=== PATIENT | male | born 1930 | race Caucasian/White ===

== ENCOUNTER 2019-12-03 16:58 | Emergency (ER) | payer OTHER ==
[2019-12-03 17:25] VITALS: BMI 22.9
--- NOTE | 2019-12-03 18:04 | PDOC ---
History of Present Illness - General Chief Complaint: Nasal Bleeding Stated Complaint: Nasal Bleeding Time Seen by Provider: 12/03/19 17:38 - History of Present Illness Initial Comments: The pt is a 89M w/ history of a-fib (eliquis), HTN, HLD, colon cancer, anemia who presents from [facility] for evaluation of epistaxis. He reports getting up from bed to go to dinner and hit his head on his walker handle and has subsequent epistaxis for 20-30 minutes. He denies falling to the floor, lightheadedness, chest pain, trouble breathing, fevers, recent illness. Denies current bleeding. Denies any other complaints. 12/03/19 17:58 Past History - Medical History Allergies/Adverse Reactions: Allergies Allergy/AdvReac Type Severity Reaction Status Date / Time naproxen [From Naprosyn] Allergy Verified 12/03/19 18:46 tamsulosin Allergy Verified 12/03/19 18:46 terazosin Allergy Verified 12/03/19 18:46 Anemia: Yes (iron) Cancer: Yes (colon) Cardiac Disorders: Yes (CHF afib) COPD: No HTN: Yes - Psycho-Social/Smoking History Smoking History: Former smoker Have you smoked in the past 12 months: No Information on smoking cessation initiated: No - Substance Abuse Hx (Audit-C & DAST Scrn) How often the patient has a drink containing alcohol: Never Score: In Men: 4 or > Positive; In Women: 3 or > Positive: 0 Screen Result (Pos requires Nsg. Audit-10AR): Negative In the last yr the pt used illegal drug/Rx for NonMed reason: No Score: Yes response is considered Positive: 0 Screen Result (Positive result requires Nsg. DAST-10): Negative Review of Systems - Review of Systems Able to Perform ROS?: Yes Comments:: GENERAL/CONSTITUTIONAL: No fever or chills HEAD, EYES, EARS, NOSE AND THROAT: No change in vision. No change in hearing. No sore throat CARDIOVASCULAR: No chest pain or shortness of breath RESPIRATORY: Denies cough GASTROINTESTINAL: No nausea, vomiting, diarrhea or constipation GENITOURINARY: No dysuria, frequency, or change in urination MUSCULOSKELETAL: No neck or back pain SKIN: No rash NEUROLOGIC: No headache, vertigo, loss of consciousness, or change in strength/sensation ENDOCRINE: No increased thirst. No abnormal weight change HEMATOLOGIC/LYMPHATIC: +anemia ALLERGIC/IMMUNOLOGIC: No hives or skin allergy 12/03/19 18:07 Is the patient limited [place] proficient: No *Physical Exam - Vital Signs Last Vital Signs Temp Pulse Resp BP Pulse Ox 97.4 F L 75 18 86/58 L 97 12/03/19 17:12 12/03/19 17:12 12/03/19 17:12 12/03/19 17:12 12/03/19 17:12 - Physical Exam GENERAL: Awake, alert, and oriented to person/place/time, in no acute distress HEAD: No signs of trauma, normocephalic, atraumatic EYES: PERRLA, EOMI, sclera anicteric, conjunctiva clear ENT: Hearing grossly normal, nares w/ clotted blood w/o septal hematoma; no active bleed; oropharynx clear without exudates. Moist mucosa LUNGS: No distress, speaks in full sentences, clear to auscultation bilaterally HEART: Irregularly irregular rhythm, regular rate, no murmurs appreciated, peripheral pulses normal and equal bilaterally ABDOMEN: Soft, nontender, normoactive bowel sounds. No guarding, no rebound EXTREMITIES: Normal inspection, Normal range of motion NEUROLOGICAL: Cranial nerves II through XII grossly intact. Normal speech, no focal sensorimotor deficits SKIN: Warm, Dry 12/03/19 18:07 ED Treatment Course - LABORATORY CBC & Chemistry Diagram: 12/03/19 17:55 12/03/19 19:00 Medical Decision Making - Medical Decision Making The pt is a 89M w/ history of a-fib (eliquis), HTN, HLD, colon cancer, anemia wh o presents from [facility] for evaluation of epistaxis. ED Course CMP, CBC, T/s, coags IV placed No active bleed at this time Pt repeat BP 90s/60s, MAP in the 80s Pt mentating well and w/o symptoms at this time Will reassess 12/03/19 18:[address] 1.7, Cr here 2.1 No leukocytosis No anemia K noted to be elevated but hemolyzed, will repeat BNP LFTs overall unremarkable LR 500cc once given Pt pending IVF and re-eval Pt signed out to Dr. Reynolds Discharge - Discharge Information Problems reviewed: Yes Clinical Impression/Diagnosis: Epistaxis Condition: Stable Disposition: HOME - Admission No - Follow up/Referral Referrals: Tang Cortez MD [Primary Care Provider] - - Patient Discharge Instructions Patient Printed Discharge Instructions: DI for Nosebleed Additional Instructions: You were seen in the Emergency Department for evaluation of nosebleed. Some lab values that are a measure of kidney function were abnormal (BUN and Cr). A copy of your labs were given to you. Hydrate with water while at home. Get these values (BUN and Creatinine) checked again in two days. Your hemoglobin was stable. The remainder of your labs were unremarkable. Review the handout provided at discharge. Avoid rubbing your nose or washing it vigorously. Follow up with your primary care provider within 72 hours to discuss this visit and to further evaluate your symptoms. Call and make an appointment. Your care is not complete until you do so. Return to the Emergency Department if you develop fevers/chills, repeat/persistent nosebleed, lightheadedness, chest pain, changes in strength/sensation, worsening symptoms, or any new/concerning symptoms. - Post Discharge Activity
[2019-12-03 18:17] LABS: BASO % 1.4 % (0-2.0); EOS % 3.2 % (0-4.5); HEMOGLOBIN 11.8 GM/dL (11.7-16.9); LYMPH % 9.9 % (8-40); MCH 32.5 pg (25.7-33.7); MCHC 33.7 g/dl (32.0-35.9); MEAN CELL VOLUME 96.3 fl (80-96); MEAN PLT VOLUME 7.8 fl (7.5-11.1); MONO % 8.7 % (3.8-10.2); NEUT % 76.8 % (42.8-82.8); PLATELET COUNT 181 K/MM3 (134-434); RBC 3.63 M/mm3 (4.00-5.60); RDW 14.2 % (11.9-15.9); WHITE BLOOD COUNT 5.6 K/mm3 (4.0-10.0)
[2019-12-03 18:29] LABS: INR 1.04 (0.83-1.09); PROTHROMBIN TIME (PATIENT) 12.3 SEC (9.7-13.0)
[2019-12-03] MEDS ORDERED: LACTATED RINGERS SOLUTION 1000 ML INFUS.BAG IV ONE (18:30)
[2019-12-03 18:32] LABS: ACTIVATED PTT 25.5 SECONDS (25.2-36.5)
[2019-12-03 18:51] LABS: BILIRUBIN,TOTAL 0.7 mg/dL (0.2-1); BLOOD UREA NITROGEN 65.2 mg/dL (7-18); CALCIUM 8.4 mg/dL (8.5-10.1); CREATININE 2.3 mg/dL (0.55-1.3); POTASSIUM 5.2 mmol/L (3.5-5.1); TOT PROT 7.8 g/dl (6.4-8.2)
--- NOTE | 2019-12-03 19:04 | PDOC ---
Attending Attestation - Resident Resident Name: Norm Saxena - ED Attending Attestation I have performed the following: I have examined & evaluated the patient, The case was reviewed & discussed with the resident, I agree w/resident's findings & plan, Exceptions are as noted - HPI HPI: 12/03/19 19:15 89 years old A. fib on Eliquis hypertension hyperlipidemia colon cancer anemia presents to the ED with mild trauma to nose epistaxis left nostril now resolved. Patient feels better no complaints at this time - Physicial Exam PE: 12/03/19 19:15 Vitals: Triage Vital signs reviewed General Appearance: No acute distress, well nourished well developed, Head: Atraumatic, Eyes: Pupils equal reactive round, extraocular movement intact Chest Wall: Nontender Cardiac: Regular rate and rhythym, no murmurs, no rubs, no gallops, Lungs: Clear to auscultation bilateral, good air movement bilaterally, Abdomen: Soft, non distended, normal bowel sounds, non tender to palpation Extremities: Full range of motion to all extremities, no cyanosis, clubbing, or edema Skin: Warm and dry, no rashes or lesions, no rash, no petechiae Neuro: AOX3; cranial Nerves 2-12 grossly intact, strength intact to all ex tremities, sensation intact to all extremities, gait normal Psych: Normal mood, normal affect - Medical Decision Making 12/03/19 19:16 89 years old with epistaxis resolved We will hydrate check labs observe and reassess Dr. Steinberg to follow up labs and reasses Discharge - Discharge Information Problems reviewed: Yes Clinical Impression/Diagnosis: Epistaxis Condition: Stable Disposition: HOME - Follow up/Referral Referrals: Tang Cortez MD [Primary Care Provider] - - Patient Discharge Instructions Patient Printed Discharge Instructions: DI for Nosebleed Additional Instructions: You were seen in the Emergency Department for evaluation of nosebleed. Some lab values that are a measure of kidney function were abnormal (BUN and Cr). A copy of your labs were given to you. Hydrate with water while at home. Get these values (BUN and Creatinine) checked again in two days. Your hemoglobin was stable. The remainder of your labs were unremarkable. Review the handout provided at discharge. Avoid rubbing your nose or washing it vigorously. Follow up with your primary care provider within 72 hours to discuss this visit and to further evaluate your symptoms. Call and make an appointment. Your care is not complete until you do so. Return to the Emergency Department if you develop fevers/chills, repeat/persistent nosebleed, lightheadedness, chest pain, changes in strength/sensation, worsening symptoms, or any new/concerning symptoms. - Post Discharge Activity
[2019-12-03 19:47] LABS: BLOOD UREA NITROGEN 66.1 mg/dL (7-18); CALCIUM 8.4 mg/dL (8.5-10.1); CREATININE 2.2 mg/dL (0.55-1.3); POTASSIUM 5.1 mmol/L (3.5-5.1)
--- NOTE | 2019-12-03 21:41 | PDOC ---
*Physical Exam - Vital Signs Last Vital Signs Temp Pulse Resp BP Pulse Ox 97.4 F L 85 18 95/64 99 12/03/19 17:12 12/03/19 18:14 12/03/19 18:14 12/03/19 18:14 12/03/19 18:35 ED Treatment Course - LABORATORY CBC & Chemistry Diagram: 12/03/19 17:55 12/03/19 19:00 - ADDITIONAL ORDERS Additional order review: Laboratory Results 12/03/19 12/03/19 12/03/19 19:00 17:55 17:55 PT with INR INR PTT (Actin FS) Sodium 140 Potassium 5.1 Chloride 107 Carbon Dioxide 25 Anion Gap 8 BUN 66.1 H Creatinine 2.2 H Est GFR (CKD-EPI)AfAm 30.10 Est GFR (CKD-EPI)NonAf 25.97 Random Glucose 105 Calcium 8.4 L Total Bilirubin AST ALT Alkaline Phosphatase Total Protein Albumin Blood Type B POSITIVE Cancelled Antibody Screen Cancelled 12/03/19 12/03/19 12/03/19 17:55 17:55 17:55 PT with INR 12.30 INR 1.04 PTT (Actin FS) 25.5 Sodium 139 Potassium 5.2 H Chloride 106 Carbon Dioxide 26 Anion Gap 8 BUN 65.2 H Creatinine 2.3 H Est GFR (CKD-EPI)AfAm 28.53 Est GFR (CKD-EPI)NonAf 24.61 Random Glucose 114 H Calcium 8.4 L Total Bilirubin 0.7 AST 38 H ALT 23 Alkaline Phosphatase 118 H Total Protein 7.8 Albumin 3.0 L Blood Type B POSITIVE Antibody Screen Negative 12/03/19 17:55 RBC 3.63 L MCV 96.3 H MCHC 33.7 RDW 14.2 MPV 7.8 Neutrophils % 76.8 Lymphocytes % 9.9 Monocytes % 8.7 Eosinophils % 3.2 Basophils % 1.4 - RADIOLOGY Radiology Studies Ordered: Category Date Time Status CERVICAL SPINE CT W/O CONTR [CT] Stat CT Scan 12/03/19 19:53 Completed - Medications Given in the ED: ED Medications Discontinued Medications Generic Name Dose Route Start Last Admin Trade Name Freq PRN Reason Stop Dose Admin Lactated Ringer's 500 ml 12/03/19 18:30 12/03/19 18:38 Lactated Ringers Solution IV 12/03/19 18:31 500 ml ONCE ONE Administration Medical Decision Making - Medical Decision Making Patient signed out by Dr. Saxena [id number] EXAM#: TYPE/EXAM: RESULT: CT/HEAD CT WITHOUT CONTRAST CT/CERVICAL SPINE CT W/O CONTR Rule out bleed CT scan of the brain. A noncontrast CT scan of the brain was performed. No prior is available for comparison. There is moderate volume loss and ventricular dilatation. Moderate chronic microvascular ischemic changes are present No mass lesion, gross acute infarct or intracranial hemorrhage are identified. Visualized paranasal sinuses and mastoid air cells are well aerated. There is mucosal hypertrophy in the left nasal cavity mainly involving the inferior nasal turbinates with secretions/debris is layering in left side of the nasopharynx. Calcification of the cavernous carotid arteries are noted. The calvarium is intact . Impression: Moderate atrophy. No gross evidence of a focal intracranial lesion or hemorrhage is seen. Correlate clinically to determine further evaluation and follow-up CT scan of the cervical spine without intravenous contrast Coronal and sagittal reconstruction images were obtained. There is grade 1 anterolisthesis of C7 over T1, likely degenerative. Otherwise, no gross fracture, subluxation or prevertebral soft tissue swelling is seen. No jumped facets are identified. Marked degenerative narrowing of C4-C5 intervertebral disc space with suggestion of fusion. There is also marked degenerative disc disease at C2-C3, C3-C4, C5-C6 level. Moderate degenerative disc disease with likely fusion at C6-C7 level. Marked degenerative disc disease at C7-T1 level. Visualized portion of the airway appears unremarkable. No gross enlarged lymph nodes are identified. Lung windows at the thoracic inlet appear unremarkable. Small calcified plaques at the common carotid bifurcation, bilaterally. IMPRESSION: Grade 1 anterolisthesis of C7 over T1, likely degenerative. Otherwise, the alignment is satisfactory without gross evidence of a fracture or dislocation. Marked degenerative disease from C2 down to T1 level with suggestion of fusion of C4 and C5 as well as C5 and C6 vertebral bodies. 12/03/19 21:39 CMP Sodium 140 mmol/L (136-145) 12/03/19 19:00 Potassium 5.1 mmol/L (3.5-5.1) 12/03/19 19:00 Chloride 107 mmol/L (98-107) 12/03/19 19:00 Carbon Dioxide 25 mmol/L (21-32) 12/03/19 19:00 Anion Gap 8 MMOL/L (8-16) 12/03/19 19:00 BUN 66.1 mg/dL (7-18) H 12/03/19 19:00 Creatinine 2.2 mg/dL (0.55-1.3) H 12/03/19 19:00 Est GFR (CKD-EPI)AfAm 30.10 12/03/19 19:00 Est GFR (CKD-EPI)NonAf 25.97 12/03/19 19:00 Random Glucose 105 mg/dL (74-106) 12/03/19 19:00 Calcium 8.4 mg/dL (8.5-10.1) L 12/03/19 19:00 Total Bilirubin 0.7 mg/dL (0.2-1) 12/03/19 17:55 AST 38 U/L (15-37) H 12/03/19 17:55 ALT 23 U/L (13-61) 12/03/19 17:55 Alkaline Phosphatase 118 U/L (45-117) H 12/03/19 17:55 Total Protein 7.8 g/dl (6.4-8.2) 12/03/19 17:55 Albumin 3.0 g/dl (3.4-5.0) L 12/03/19 17:55 Electrolytes unremarkable Cr 2.2, unknown baseline (Cr=1.7 per prior labs performed at outside facility, however this does not necessarily correspond with the value ranges at our lab) Patient instructed to obtain follow-up BUN and Cr labs in two days Epistaxis resolved Return precautions Stable for discharge Discharge - Discharge Information Problems reviewed: Yes Clinical Impression/Diagnosis: Epistaxis Condition: Stable Disposition: HOME - Follow up/Referral Referrals: Tang Cortez MD [Primary Care Provider] - - Patient Discharge Instructions Patient Printed Discharge Instructions: DI for Nosebleed Additional Instructions: You were seen in the Emergency Department for evaluation of nosebleed. Some lab values that are a measure of kidney function were abnormal (BUN and Cr). A copy of your labs were given to you. Hydrate with water while at home. Get these values (BUN and Creatinine) checked again in two days. Your hemoglobin was stable. The remainder of your labs were unremarkable. Review the handout provided at discharge. Avoid rubbing your nose or washing it vigorously. Follow up with your primary care provider within 72 hours to discuss this visit and to further evaluate your symptoms. Call and make an appointment. Your care is not complete until you do so. Return to the Emergency Department if you develop fevers/chills, repeat/persistent nosebleed, lightheadedness, chest pain, changes in strength/sensation, worsening symptoms, or any new/concerning symptoms. - Post Discharge Activity
[2019-12-04 00:22] VITALS: BP 118/79; PULSE 70; TEMP 98.6
--- NOTE | 2019-12-04 09:05 | EKG ---
Test Reason : Blood Pressure : / mmHG Vent. Rate : 083 BPM Atrial Rate : 100 BPM P-R Int : 000 ms QRS Dur : 086 ms QT Int : 406 ms P-R-T Axes : 000 011 014 degrees QTc Int : 477 ms ATRIAL FIBRILLATION ABNORMAL ECG NO PREVIOUS ECGS AVAILABLE Confirmed by MD GURU, DHAVAL ([id number]) on 12/04/2019 9:05:05 AM Referred By: Confirmed By:DHAVAL GARVEY MD
== END 2019-12-04 00:22 | disposition home or self-care (01) ==
LOC: JER 16:58
DX: R04.0 Epistaxis (principal)
CPT/HCPCS: 36415; 70450-TC; 72125-TC; 80048; 80053; 85025; 85610; 85730; 86850; 86900; 86901; 93005; 93010; 99285-25

== ENCOUNTER 2019-12-10 17:36 | Inpatient (IN) | payer OTHER ==
[2019-12-10 17:56] VITALS: BMI 23.5
--- OUTSIDE RECORDS SUMMARY | 2019-12-10 18:47 | XMS ---
:1930 [facility] Name Relationship Address Phone RE Unavailable Unavailable Unavailable ZENY HOBBS SON [address] [place] [address] ZENY HOBBS Child [address] [place] [address] Re-disclosure Warning The records that you are about to access may contain information from federally- assisted alcohol or drug abuse programs. If such information is present, then the following federally mandated warning applies: This information has been disclosed to you from records protected by federal confidentiality rules (42 CFR part 2). The federal rules prohibit you from making any further disclosure of this information unless further disclosure is expressly permitted by the written consent of the person to whom it pertains or as otherwise permitted by 42 CFR part 2. A general authorization for the release of medical or other information is NOT sufficient for this purpose. The Federal rules restrict any use of the information to criminally investigate or prosecute any alcohol or drug abuse patient.The records that you are about to access may contain highly sensitive health information, the redisclosure of which is protected by Article 27-F of the [facility] Public Health law. If you continue you may haveaccess to information: Regarding HIV / AIDS; Provided by facilities licensed or operated by the [facility] Office of Mental Health; or Provided by the [facility] Office for People With Developmental Disabilities. If such information is present, then the following [facility] mandated warning applies: This information has been disclosed to you from confidential records which are protected by state law. State law prohibits you from making any further disclosure of this information without the specific written consent of the person to whom it pertains, or as otherwise permitted by law. Any unauthorized further disclosure in violation of state law may result in a fine or detention sentence or both. A general authorization for the release of medical or other information is NOT sufficient authorization for further disclosure. Insurance Providers Payer name Policy type Policy ID Covered Covered democrat's Policy P kamar / Coverage democrat ID relationship to [employer] [employer] ormation type [place] MEDICAID [id number] SP [id number] Results ID Date Data Source [id number] 07/29/2019 12:00:00 PM EDT [place] Name Value Range Interpretation Description Data Sup porting Code Source(s) Document(s ) SARS CoV-2 [place] Interpretation This lab was ordered by [facility] and reported by [facility] [employer]. Procedure
--- NOTE | 2019-12-10 19:44 | PDOC ---
Attending Attestation - Resident Resident Name: Roseanna Baez - ED Attending Attestation I have performed the following: I have examined & evaluated the patient, The case was reviewed & discussed with the resident, I agree w/resident's findings & plan - HPI HPI: 12/10/19 20:26 see resident hpi - Physicial Exam PE: 12/10/19 20:27 see resident exam - Medical Decision Making 12/10/19 20:27 89-year-old male status post unwitnessed fall, here for similar event several days ago with baseline confusion Plan for CT scan of the head and cervical spine as well as possible syncope evaluation Will plan for telemetry observation pending results Discharge - Discharge Information Problems reviewed: Yes Clinical Impression/Diagnosis: Multiple falls - Follow up/Referral Referrals: Tang Cortez MD [Primary Care Provider] - - Patient Discharge Instructions - Post Discharge Activity
--- NOTE | 2019-12-10 20:26 | PDOC ---
History of Present Illness - General Chief Complaint: Injury Stated Complaint: Injury Time Seen by Provider: 12/10/19 19:42 History Source: Patient, Detention Records Exam Limitations: Dementia - History of Present Illness Initial Comments: Pt is a 89 yo M, with PMH of Afib (on Eliquis), HTN, HLD, and colon CA, who is presenting via EMS from [facility] for "being found on the ground". Per [place] records, pt was found down on the ground sitting next to his bed. He had hip & pelvis x-rays done with no acute fracture. Pt was at [facility] ER 12/02 for epistaxis. Pt denies recent epistaxis since his last visit and when asked about the dried blood on his nose, he states "maybe I had a little bleeding today and maybe I fell getting out of bed". Pt is a poor historian and tells a variety of stories to explain todays events. PCP: Dr. Cortez ([facility]) Social: Pt denies any cigarette, alcohol, or drug use. Pt denies any recent travel or sick contacts. Family: no relevant history. 12/10/19 20:18 12/10/19 20:26 Past History - Travel History Traveled outside of the country in the last 30 days: No Close contact w/someone who was outside of country & ill: No - Medical History Allergies/Adverse Reactions: Allergies Allergy/AdvReac Type Severity Reaction Status Date / Time naproxen [From Naprosyn] Allergy Verified 12/10/19 17:56 tamsulosin Allergy Verified 12/10/19 17:56 terazosin Allergy Verified 12/10/19 17:56 Anemia: Yes (iron) Cancer: Yes (colon) Cardiac Disorders: Yes (CHF afib) COPD: No HTN: Yes - Psycho-Social/Smoking History Smoking History: Never smoked Have you smoked in the past 12 months: No Information on smoking cessation initiated: No - Substance Abuse Hx (Audit-C & DAST Scrn) In the last yr the pt used illegal drug/Rx for NonMed reason: No Score: Yes response is considered Positive: 0 Screen Result (Positive result requires Nsg. DAST-10): Negative Trauma Specific PMHX - Complaint Specific PMHX Arthritis: Yes (L shoulder) Back Injury: No Neck Injury: No Hx Sacro Iliac Joint Dysfunction: No Review of Systems - Review of Systems Able to Perform ROS?: No (dementia) Is the patient limited [place] proficient: No *Physical Exam - Vital Signs Last Vital Signs Temp Pulse Resp BP Pulse Ox 97.3 F L 94 H 16 120/84 95 12/10/19 17:40 12/10/19 17:40 12/10/19 17:40 12/10/19 17:40 12/10/19 17:40 - Physical Exam Borderline tachycardia, pt afebrile. Pt in NAD, normal body habitus. Pt alert and oriented to person and place. Not oriented to time (baseline) vp strategic planning generally intact, muscular strength and sensation intact. Full range of all 4 extremities, limited in LUE 2/2 to pain (baseline) No midline spinal tenderness, step-offs, or crepitus. Head normocephalic, atraumatic. Eyes PERRLA, EOMI. Oropharynx without erythema or exudates, no LAD b/l. No nasal congestion. Hearing intact. Clear heart sounds, S1/S2, no JVD, b/l pedal edema, or heart murmur. Clear lung sounds, no respiratory distress, wheezes, crackles, or accessory muscle use. No abdominal or CVA tenderness to palpation, no rebound, no guarding. Abdomen soft, non-distended, and with normoactive bowel sounds. Skin without jaundice or rash. 12/10/19 22:42 ED Treatment Course - LABORATORY CBC & Chemistry Diagram: 12/10/19 21:35 12/10/19 21:35 - RADIOLOGY Radiology Studies Ordered: Category Date Time Status CERVICAL SPINE CT W/O CONTR [CT] Stat CT Scan 12/10/19 19:[address] WITHOUT CONTRAST [CT] Stat CT Scan 12/10/19 19:44 Ordered CHEST X-RAY PORTABLE* [RAD] Stat Radiology 12/10/19 20:04 Ordered SHOULDER-LEFT [RAD] Stat Radiology 12/10/19 20:05 Ordered Medical Decision Making - Medical Decision Making Pt was seen at bedside, also will be seen by attending Dr. Steinberg. Pt presenting with recent falls from [place], poor historian. Recent epistaxis, concerning for hypovolemia 2/2 blood loss, syncope, falls on A/C (Eliquis). Pt declined pain control at this time. Will continue to reassess pt and monitor for symptomatic improvement. ECG: Afib with RVR with PVCs. No TWIs or significant ST segment changes. No significant changes from prior ECG. 12/10/19 21:45 Difficult IV access, labs sent. Pt requesting pain relief, borderline tachycardia, has not taken rate control meds. Provided 1 g IV ofirmev, 50 mg ER metoprolol. 12/10/19 21:45 CTH and C-spine with no acute pathology. Dr. Valera called to note mediastinal lymph node enlargement. Pt can f/u results with PCP/inpatient team. 12/10/19 22:47 BUN/Cr within pt baseline H/H dropping, not at level for transfusion K and troponin elevated with no new EKG changes from baseline (Afib RVR with PVCs) Pt admitted to hospitalist team (telemetry) for ACS/syncope work-up. 12/11/19 00:03 Discharge - Discharge Information Problems reviewed: Yes Clinical Impression/Diagnosis: Multiple falls, Elevated troponin I level Condition: Stable - Admission Yes - Follow up/Referral Referrals: Tang Cortez MD [Primary Care Provider] - - Patient Discharge Instructions - Post Discharge Activity
[2019-12-10] MEDS ORDERED: ACETAMINOPHEN 1000 MG/100 ML VIAL (NON FORMULARY) IVPB ONE (21:45)
[2019-12-10] MEDS ORDERED: METOPROLOL TARTRATE 50 MG TABLET (FP) PO ONE (21:45)
[2019-12-10 22:07] LABS: BASO % 0.9 % (0-2.0); EOS % 1.6 % (0-4.5); HEMATOCRIT 28.7 % (35.4-49); HEMOGLOBIN 9.8 GM/dL (11.7-16.9); MCH 32.7 pg (25.7-33.7); MCHC 34.1 g/dl (32.0-35.9); MEAN CELL VOLUME 95.7 fl (80-96); MEAN PLT VOLUME 8.6 fl (7.5-11.1); MONO % 8.1 % (3.8-10.2); NEUT % 79.4 % (42.8-82.8); PLATELET COUNT 192 K/MM3 (134-434); RBC 2.99 M/mm3 (4.00-5.60); WHITE BLOOD COUNT 5.5 K/mm3 (4.0-10.0)
[2019-12-10 22:17] LABS: INR 1.21 (0.83-1.09); PROTHROMBIN TIME (PATIENT) 14.3 SEC (9.7-13.0)
[2019-12-10 22:20] LABS: ACTIVATED PTT 25.6 SECONDS (25.2-36.5)
[2019-12-10 22:45] LABS: ALBUMIN 2.9 g/dl (3.4-5.0); BILIRUBIN,TOTAL 0.4 mg/dL (0.2-1); BLOOD UREA NITROGEN 47.5 mg/dL (7-18); CALCIUM 8.5 mg/dL (8.5-10.1); CREATININE 1.7 mg/dL (0.55-1.3); TOT PROT 6.8 g/dl (6.4-8.2)
[2019-12-10 22:57] LABS: POTASSIUM 6.3 mmol/L (3.5-5.1)
[2019-12-10] MEDS ORDERED: METOPROLOL TARTRATE 50 MG TABLET (FP) ONE (23:57)
[2019-12-10] MEDS ORDERED: ACETAMINOPHEN INJECTION 100 ML IVPB ONE (23:58)
--- OUTSIDE RECORDS SUMMARY | 2019-12-11 00:06 | XMS ---
:1930 [facility] Support Name Relationship Address Phone RE Unavailable Unavailable Unavailable ZENY HOBBS SON [address] [place] [address] ZENY HOBBS Child [address] [place] [place] [address] Re-disclosure Warning The records that you are [...] is protected by Article 27-F of the [facility] Public Health law. If you continue you may haveaccess to information: Regarding HIV / AIDS; Provided by facilities licensed or operated by the [facility] Office of Mental Health; or Provided by the [facility] Office for People With Developmental Disabilities. If such information is present, then the following [facility] mandated warning applies: This information has been [...] law may result in a fine or intermediate sentence or both. A general authorization for the release of medical or other information is NOT sufficient authorization for further disclosure. Insurance Providers Payer name Policy type Policy ID Covered Covered alliance party's Policy P kamar / Coverage alliance party ID relationship to [place] [employer] ormation type [place] MEDICAID [id number] SP [id number] Results ID Date Data Source [id number] 07/29/2019 12:00:00 PM EDT [place] Name Value Range Interpretation Description Data Sup porting Code Source(s) Document(s ) SARS CoV-2 [place] Interpretation This lab was ordered by [facility] and reported by [facility]. Procedure
[2019-12-11 00:49] LABS: BLOOD UREA NITROGEN 48.1 mg/dL (7-18); CALCIUM 8.6 mg/dL (8.5-10.1); CREATININE 1.6 mg/dL (0.55-1.3); POTASSIUM 5.2 mmol/L (3.5-5.1)
--- NOTE | 2019-12-11 01:07 | HP ---
CHIEF COMPLAINT: PCP: HISTORY OF PRESENT ILLNESS: Mr. Fuentes is an 89 year old with PMH of afib on Eliquis, hypertension, hyperlipidemia, colon cancer who presents to the ED after an unwitnessed fall this morning. Currently residing at [facility]. Patient is a poor historian but reports during breakfast he fell, landing on his back. Denied fever, chills, headache, dizziness, vision loss, diaphoresis prior to the episode. He reports new pain in the left shoulder and pain in the left leg, with associated weakness. ER course was notable for: CT head, cervical spine negative for acute pathology; EKG revealed Afib RVR without acute ST wave changes. Acetaminophen and metoprolol administered. Recent Travel: None PAST MEDICAL HISTORY: Hypertension HLD colon cancer anemia PAST SURGICAL HISTORY: Knee replacement surgery ( date unknown) Social History: Smoking: quit smoking in 1954 Alcohol:never Drugs: never Allergies naproxen [From Naprosyn] Allergy (Verified 12/10/19 17:56) tamsulosin Allergy (Verified 12/10/19 17:56) terazosin Allergy (Verified 12/10/19 17:56) Home Med List Aa/Hydrolyzed Collagen, Whey [Lps 15-30 Liquid] 30 ml PO BID 12/11/19 Acetaminophen 325 mg PO Q6H PRN 12/11/19 Allopurinol [Zyloprim -] 100 mg PO BID 12/11/19 Ammonium Lactate Lotion [Lac-Hydrin 12% Lotion -] 1 applic TP DAILY 12/11/19 Amoxicillin - [Amoxicillin 500mg Capsule -] 1,000 mg PO BID 12/11/19 Apixaban [Eliquis] 2.5 mg PO BID 12/11/19 Ascorbate Calcium [Vitamin C] 500 mg PO DAILY 12/11/19 Bacillus Coagulans [Bacid with Lactospore] 250 mg PO TID 12/11/19 Cyanocobalamin (Vitamin B-12) [B-12] 1,000 mcg PO DAILY 12/11/19 Famotidine 20 mg PO DAILY 12/11/19 Ferrous Sulfate [Iron] 325 mg PO DAILY 12/11/19 Finasteride 5 mg PO DAILY 12/11/19 Fluticasone/Vilanterol [Breo Ellipta 100-25 Mcg INH] 1 each IH DAILY 12/11/19 Furosemide 20 mg PO DAILY MDD 60 mg 12/11/19 Furosemide 40 mg PO DAILY MDD 60 mg 12/11/19 Lidocaine [Aspercreme] 1 each TP DAILY 12/11/19 Melatonin/Pyridoxine HCl (B6) [Melatonin 5 mg Tablet] 1 each PO DAILY 12/11/19 Metoprolol Succinate 50 mg PO DAILY 12/11/19 Montelukast Sodium [Singulair] 10 mg PO DAILY 12/11/19 Polyethylene Glycol 3350 [Miralax (For Daily Use) -] 17 gm PO PRN PRN 12/11/19 Polyvinyl Alcohol [Artificial Tears] 1 drop OD ASDIR 12/11/19 Potassium Chloride 40 meq PO BID 12/11/19 Sodium Chloride Nasal [place] [[place] Nasal [place] -] 1 spray NS PRN PRN 12/11/19 Spironolactone [Aldactone] 25 mg PO DAILY 12/11/19 Tramadol HCl 50 mg PO Q8H PRN 12/11/19 REVIEW OF SYSTEMS CONSTITUTIONAL: Absent: fever, chills, diaphoresis, generalized weakness, malaise, loss of appetite, weight change HEENT: Absent: rhinorrhea, nasal congestion, throat pain, throat swelling, difficulty swallowing, mouth swelling, ear pain, eye pain, visual changes CARDIOVASCULAR: Absent: chest pain, syncope, palpitations, irregular heart rate, lightheadedness, peripheral edema RESPIRATORY: Absent: cough, shortness of breath, dyspnea with exertion, orthopnea, wheezing, stridor, hemoptysis GASTROINTESTINAL: Absent: abdominal pain, abdominal distension, nausea, vomiting, diarrhea, constipation, melena, hematochezia GENITOURINARY: Absent: dysuria, frequency, urgency, hesitancy, hematuria, flank pain, genital pain MUSCULOSKELETAL: ULE: 2/5 muscle strength, normal strength on URE. Lower leg strength 5/5 bilaterally. Erythema, warmth and hyperpigmentation in both anterior shins Positive: Tenderness to palpation over left olecranon and left clavicle, coracoid process Absent: myalgia, joint swelling, back SKIN: Absent: rash, itching, pallor HEMATOLOGIC/IMMUNOLOGIC: Absent: easy bleeding, easy bruising, lymphadenopathy, frequent infections ENDOCRINE: Absent: unexplained weight gain, unexplained weight loss, heat intolerance, cold intolerance NEUROLOGIC: Absent: headache, focal weakness or paresthesias, dizziness, unsteady gait, seizure, mental status changes, bladder or bowel incontinence PSYCHIATRIC: Absent: anxiety, depression, suicidal or homicidal ideation, hallucinations. PHYSICAL EXAMINATION Vital Signs - 24 hr 12/10/19 17:40 Temperature 97.3 F L Pulse Rate 94 H Respiratory 16 Rate Blood Pressure 120/84 O2 Sat by Pulse 95 Oximetry (%) GENERAL: Alert and oriented to self and place, patient reports we are in year 2030. In no acute distress. HEAD: Normal with no signs of trauma. EYES: AYDEN, extraocular movements intact, sclera anicteric, conjunctiva clear. No lid lag. EARS, NOSE, THROAT: Ears normal, nares patent, caked with some blood, oropharynx clear without exudates. Moist mucous membranes. NECK: Normal range of motion, supple without lymphadenopathy, masses. LUNGS: CTAB. No wheezes, and no crackles. No accessory muscle use. HEART: Regular rate and rhythm, normal S1 and S2 without murmur. ABDOMEN: Soft, nontender. Distended with tympany to percussion. Normoactive bowel sounds, no guarding, no rebound, no masses. No hepatomegaly or splenomegaly. MUSCULOSKELETAL: Decreased ROM at the left elbow. No bony deformities or tenderness. No CVA tenderness. UPPER EXTREMITIES: 2+ pulses, warm, well-perfused. No cyanosis. LOWER EXTREMITIES: 2+ pulses, warm, well-perfused. No calf tenderness. No peripheral edema. NEUROLOGICAL: Cranial nerves II-XII intact. Normal speech. PSYCHIATRIC: Cooperative. Good eye contact. Appropriate mood and affect. SKIN: Warm, dry, hyperpigmentation of anterior shins bilaterally Laboratory Results - last 24 hr 12/10/19 12/10/19 12/10/19 21:35 21:35 21:35 WBC 5.5 RBC 2.99 L Hgb 9.8 L Hct 28.7 L D MCV 95.7 MCH 32.7 MCHC 34.1 RDW 15.0 Plt Count 192 MPV 8.6 D Absolute Neuts (auto) 4.4 Neutrophils % 79.4 Lymphocytes % 10.0 Monocytes % 8.1 Eosinophils % 1.6 Basophils % 0.9 Nucleated RBC % 0 PT with INR 14.30 H INR 1.21 H PTT (Actin FS) 25.6 Sodium 137 Potassium 6.3 H* Chloride 107 Carbon Dioxide 24 Anion Gap 6 L BUN 47.5 H Creatinine 1.7 H Est GFR (CKD-EPI)AfAm 41.11 Est GFR (CKD-EPI)NonAf 35.47 Random Glucose 101 Lactic Acid Calcium 8.5 Total Bilirubin 0.4 AST 80 H ALT 25 Alkaline Phosphatase 99 Troponin I 1.24 H* Total Protein 6.8 Albumin 2.9 L Blood Type Antibody Screen 12/10/19 12/10/19 21:35 21:35 WBC RBC Hgb Hct MCV MCH MCHC RDW Plt Count MPV Absolute Neuts (auto) Neutrophils % Lymphocytes % Monocytes % Eosinophils % Basophils % Nucleated RBC % PT with INR INR PTT (Actin FS) Sodium Potassium Chloride Carbon Dioxide Anion Gap BUN Creatinine Est GFR (CKD-EPI)AfAm Est GFR (CKD-EPI)NonAf Random Glucose Lactic Acid 1.1 Calcium Total Bilirubin AST ALT Alkaline Phosphatase Troponin I Total Protein Albumin Blood Type B POSITIVE Antibody Screen Negative ASSESSMENT/PLAN: Chay is an 89 year old with PMH afib on eliquis presenting to the ED after an unwitnessed fall at rehab center, found to have NSTEMI and complaining of left upper extremity pain. #NSTEMI - Initial troponin elevated 1.24; second troponin trending down - Likely due to demand ischemia secondary to afib RVR - ECHO ordered - Cardiology consulted #Afib with RVR - Received 50 metoprolol in ED, decreasing rate from 126 to 111 - Goal rate <110 # Left upper extremity pain - Patient reporting pain in shoulder and elbow with decreased strength and ROM - Awaiting shoulder imaging # Acute Anemia - Baseline Hb 11.8, 9.8 on admission - Likely due to epistaxis 1 week ago - Monitor H/H DVT prophylaxis: Eliquis FEN: PO fluids Monitor H/H Diet ordered Dispo: Tele FULL CODE Family Medical History Family History: As Documented Visit type - Medication Review Med list reviewed for High Risk Meds patients 65 and older: Yes - Emergency Visit Emergency Visit: Yes ED Registration Date: 12/10/19 Care time: The patient presented to the Emergency Department on the above date and was hospitalized for further evaluation of their emergent condition. - New Patient This patient is new to me today: Yes Date on this admission: 12/11/19 - Critical Care Critical Care patient: No ATTENDING PHYSICIAN STATEMENT I saw and evaluated the patient. I reviewed the resident's note and discussed the case with the resident. I agree with the resident's findings and plan as documented. SUBJECTIVE: OBJECTIVE: ASSESSMENT AND PLAN:
[2019-12-11 02:12] LABS: URINE APPEARANCE CLEAR; URINE BILIRUBIN NEGATIVE (NEGATIVE); URINE COLOR YELLOW; URINE GLUCOSE (UA) NEGATIVE (NEGATIVE); URINE KETONE NEGATIVE (NEGATIVE); URINE LEUK ESTERASE NEGATIVE (NEGATIVE); URINE NITRITE NEGATIVE (NEGATIVE); URINE PROTEIN NEGATIVE (NEGATIVE); URINE UROBILINOGEN 0.2 mg/dL (0.2-1.0)
--- NOTE | 2019-12-11 02:26 | PN ---
Teaching Attending Note Name of Resident: Marcela Rivera ATTENDING PHYSICIAN STATEMENT I saw and evaluated the patient. I reviewed the resident's note and discussed the case with the resident. I agree with the resident's findings and plan as documented. SUBJECTIVE: 89yoM with history of atrial fibrillation on Eliquis, HTN, HLD, anemia, and remote history of colon cancer who presents from [facility] after being found on the floor. Patient is a poor historian but he states he has been having palpitations recently without chest pain or shortness of breath. 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 He states he fell out of bed while trying to eat a meal but does not know how or why. He cannot say if he hit his head or lost consciousness. ED work up notable for hgb 9.8 from 11.8 a week prior, creatinine 1.6, troponin 1.24. EKG showing atrial fibrillation without acute ST or T wave changes. CT head and C-spine showed no acute findings. He received metoprolol tartrate 50mg PO. Admission requested for ACS work up. At time of evaluation patient denies chest pain. ROS: (+) palpitations, left shoulder pain (-) Chest pain, SOB, lightheadedness, abd pain, dysuria, headache OBJECTIVE: Vital Signs - 24 hr 12/10/19 12/11/19 17:40 01:55 Temperature 97.3 F L 97.7 F Pulse Rate 94 H Pulse Rate [ 80 Right Radial] Respiratory 16 14 Rate Blood Pressure 120/84 Blood Pressure 110/77 [Left Arm] O2 Sat by Pulse 95 95 Oximetry (%) EXAM Gen: awake, alert, NAD HEENT: NC/AT CV: Irregular rate/rhythm, no MRG appreciated Resp: Unlabored, CTAB Abd: Mildly distended but soft and nontender, +bowel sounds Ext: Hyperpigmentation bilateral lower legs. No edema or tenderness. Well-healed surgical scars bilateral knees. ROM left shoulder limited due to pain Neuro: CN II-XII grossly intact, strength 4-/5 all extremities Laboratory Results - last 24 hr 12/10/19 12/10/19 12/10/19 02:08 21:35 21:35 WBC 5.5 RBC 2.99 L Hgb 9.8 L Hct 28.7 L D MCV 95.7 MCH 32.7 MCHC 34.1 RDW 15.0 Plt Count 192 MPV 8.6 D Absolute Neuts (auto) 4.4 Neutrophils % 79.4 Lymphocytes % 10.0 Monocytes % 8.1 Eosinophils % 1.6 Basophils % 0.9 Nucleated RBC % 0 PT with INR 14.30 H INR 1.21 H PTT (Actin FS) 25.6 Sodium Potassium Chloride Carbon Dioxide Anion Gap BUN Creatinine Est GFR (CKD-EPI)AfAm Est GFR (CKD-EPI)NonAf Random Glucose Lactic Acid Calcium Total Bilirubin AST ALT Alkaline Phosphatase Creatine Kinase Creatine Kinase Index CK-MB (CK-2) Troponin I Total Protein Albumin Urine Color Yellow Urine Appearance Clear Urine pH 5.0 Ur Specific [place] 1.015 Urine Protein Negative Urine Glucose (UA) Negative Urine Ketones Negative Urine Blood Negative Urine Nitrite Negative Urine Bilirubin Negative Urine Urobilinogen 0.2 Ur Leukocyte Esterase Negative Blood Type Antibody Screen 12/10/19 12/10/19 12/10/19 21:35 21:35 21:35 WBC RBC Hgb Hct MCV MCH MCHC RDW Plt Count MPV Absolute Neuts (auto) Neutrophils % Lymphocytes % Monocytes % Eosinophils % Basophils % Nucleated RBC % PT with INR INR PTT (Actin FS) Sodium 137 Potassium 6.3 H* Chloride 107 Carbon Dioxide 24 Anion Gap 6 L BUN 47.5 H Creatinine 1.7 H Est GFR (CKD-EPI)AfAm 41.11 Est GFR (CKD-EPI)NonAf 35.47 Random Glucose 101 Lactic Acid 1.1 Calcium 8.5 Total Bilirubin 0.4 AST 80 H ALT 25 Alkaline Phosphatase 99 Creatine Kinase Creatine Kinase Index CK-MB (CK-2) Troponin I 1.24 H* Total Protein 6.8 Albumin 2.9 L Urine Color Urine Appearance Urine pH Ur Specific [place] Urine Protein Urine Glucose (UA) Urine Ketones Urine Blood Urine Nitrite Urine Bilirubin Urine Urobilinogen Ur Leukocyte Esterase Blood Type B POSITIVE Antibody Screen Negative 12/10/19 23:46 WBC RBC Hgb Hct MCV MCH MCHC RDW Plt Count MPV Absolute Neuts (auto) Neutrophils % Lymphocytes % Monocytes % Eosinophils % Basophils % Nucleated RBC % PT with INR INR PTT (Actin FS) Sodium 139 Potassium 5.2 H Chloride 110 H Carbon Dioxide 24 Anion Gap 5 L BUN 48.1 H Creatinine 1.6 H Est GFR (CKD-EPI)AfAm 44.24 Est GFR (CKD-EPI)NonAf 38.17 Random Glucose 103 Lactic Acid Calcium 8.6 Total Bilirubin AST ALT Alkaline Phosphatase Creatine Kinase 427 H Creatine Kinase Index 3.8 CK-MB (CK-2) 16.6 H Troponin I 1.15 H* Total Protein Albumin Urine Color Urine Appearance Urine pH Ur Specific [place] Urine Protein Urine Glucose (UA) Urine Ketones Urine Blood Urine Nitrite Urine Bilirubin Urine Urobilinogen Ur Leukocyte Esterase Blood Type Antibody Screen Imaging, EKGs reviewed in chart ASSESSMENT AND PLAN: 89yoM with history of atrial fibrillation on Eliquis, HTN, HLD, anemia, and remote history of colon cancer who presents from [facility] after being found on the floor, found to have NSTEMI. NSTEMI, suspect demand ischemia secondary to rapid atrial fibrillation Patient denies having had any chest pain but endorses palpitations Known history of atrial fibrillation; rate ranging 90s-120s in ED, now in 90s s/p metoprolol Troponin 1.24 -> 1.15; serial EKG without changes - tele - cardiology consult - continue metoprolol, Eliquis - echo Unwitnessed fall Patient unable to recall how he fell, possible syncope CT head/C-spine without acute findings - cardiac work up as above Anemia Hgb 9.8 from 11.8 a week prior when he presented iwth epistaxis No evidence of bleeding currently and patient is hemodynamically stable - trend H/H - monitor for recurrence of bleeding Renal dysfunction Baseline unknown, currently 1.6 which is improved from last week 2.2 - avoid nephrotoxic meds - obtain outpatient records in AM ?CHF: home meds include Lasix, spironolactone. Available history is limited. Continue home diuretics for nwo, monitor volume status HTN, HLD: continue home meds DVT ppx: on Eliquis
[2019-12-11 06:44] LABS: HEMATOCRIT 29.9 % (35.4-49); HEMOGLOBIN 10.2 GM/dL (11.7-16.9); MCHC 34.2 g/dl (32.0-35.9); MEAN CELL VOLUME 96.7 fl (80-96); MEAN PLT VOLUME 7.8 fl (7.5-11.1); PLATELET COUNT 164 K/MM3 (134-434); RBC 3.09 M/mm3 (4.00-5.60); WHITE BLOOD COUNT 5.3 K/mm3 (4.0-10.0)
[2019-12-11 07:00] LABS: BLOOD UREA NITROGEN 43.5 mg/dL (7-18); CALCIUM 8.7 mg/dL (8.5-10.1); CREATININE 1.6 mg/dL (0.55-1.3); POTASSIUM 4.7 mmol/L (3.5-5.1)
--- NOTE | 2019-12-11 08:48 | CON.CARD ---
Consult Consult Specialty:: Cardiology - History of Present Illness History of Present Illness: 89yoM with history of atrial fibrillation on Eliquis, HTN, HLD, anemia, and remote history of colon cancer who presents from [facility] after being found on the floor. Patient is a poor historian but he states he has been having palpitations recently without chest pain or shortness of breath. 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 He states he fell out of bed while trying to eat a meal but does not know how or why. He cannot say if he hit his head or lost consciousness. ED work up notable for hgb 9.8 from 11.8 a week prior, creatinine 1.6, troponin 1.24. EKG showing atrial fibrillation without acute ST or T wave changes. CT head and C-spine showed no acute findings. He received metoprolol tartrate 50mg PO. Admission requested for ACS work up. At time of evaluation patient denies chest pain. - History Source History Provided By: Patient, Medical Record - Past Medical History Cardio/Vascular: Yes: AFIB, HTN, Hyperlipdemia - Smoking History Smoking history: Never smoked Have you smoked in the past 12 months: No Home Medications - Allergies Allergies/Adverse Reactions: Allergies Allergy/AdvReac Type Severity Reaction Status Date / Time naproxen [From Naprosyn] Allergy Verified 12/10/19 17:56 tamsulosin Allergy Verified 12/10/19 17:56 terazosin Allergy Verified 12/10/19 17:56 - Home Medications Home Medications: Ambulatory Orders Aa/Hydrolyzed Collagen, Whey [Lps 15-30 Liquid] 30 ml PO BID 12/11/19 Acetaminophen 325 mg PO Q6H PRN 12/11/19 Allopurinol [Zyloprim -] 100 mg PO BID 12/11/19 Ammonium Lactate Lotion [Lac-Hydrin 12% Lotion -] 1 applic TP DAILY 12/11/19 Amoxicillin - [Amoxicillin 500mg Capsule -] 1,000 mg PO BID 12/11/19 Apixaban [Eliquis] 2.5 mg PO BID 12/11/19 Ascorbate Calcium [Vitamin C] 500 mg PO DAILY 12/11/19 Bacillus Coagulans [Bacid with Lactospore] 250 mg PO TID 12/11/19 Cyanocobalamin (Vitamin B-12) [B-12] 1,000 mcg PO DAILY 12/11/19 Famotidine 20 mg PO DAILY 12/11/19 Ferrous Sulfate [Iron] 325 mg PO DAILY 12/11/19 Finasteride 5 mg PO DAILY 12/11/19 Fluticasone/Vilanterol [Breo Ellipta 100-25 Mcg INH] 1 each IH DAILY 12/11/19 Furosemide 20 mg PO DAILY MDD 60 mg 12/11/19 Furosemide 40 mg PO DAILY MDD 60 mg 12/11/19 Lidocaine [Aspercreme] 1 each TP DAILY 12/11/19 Melatonin/Pyridoxine HCl (B6) [Melatonin 5 mg Tablet] 1 each PO DAILY 12/11/19 Metoprolol Succinate 50 mg PO DAILY 12/11/19 Montelukast Sodium [Singulair] 10 mg PO DAILY 12/11/19 Polyethylene Glycol 3350 [Miralax (For Daily Use) -] 17 gm PO PRN PRN 12/11/19 Polyvinyl Alcohol [Artificial Tears] 1 drop OD ASDIR 12/11/19 Potassium Chloride 40 meq PO BID 12/11/19 Sodium Chloride Nasal [place] [[place] Nasal [place] -] 1 spray NS PRN PRN 12/11/19 Spironolactone [Aldactone] 25 mg PO DAILY 12/11/19 Tramadol HCl 50 mg PO Q8H PRN 12/11/19 Vital Signs: Vital Signs Temperature 97.7 F 12/11/19 05:45 Pulse Rate 103 H 12/11/19 05:45 Respiratory Rate 17 12/11/19 05:45 Blood Pressure 112/77 12/11/19 05:45 O2 Sat by Pulse Oximetry (%) 97 12/11/19 05:45 Constitutional: Yes: Well Nourished, No Distress, Calm Eyes: Yes: WNL, Conjunctiva Clear, EOM Intact HENT: Yes: WNL, Atraumatic, Normocephalic Neck: Yes: WNL, Supple, Trachea Midline Respiratory: Yes: WNL, Regular, CTA Bilaterally Gastrointestinal: Yes: WNL, Normal Bowel Sounds Renal/: Yes: WNL Cardiovascular: Yes: Pulse Irregular Heart Sounds: Yes: S1, S2 Musculoskeletal: Yes: WNL Extremities: Yes: WNL Integumentary: Yes: WNL Neurological: Yes: Alert Psychiatric: Yes: Alert, Oriented - Other Data Labs, Other Data: CBC, BMP 12/11/19 05:45 12/11/19 05:45 INR, PTT INR 1.21 (0.83-1.09) H 12/10/19 21:35 Troponin, BNP 12/10/19 12/10/19 12/11/19 21:35 23:46 05:45 Troponin I 1.24 H* 1.15 H* 1.44 H* Troponin, BNP 12/10/19 12/10/19 12/11/19 21:35 23:46 05:45 Troponin I 1.24 H* 1.15 H* 1.44 H* Imaging - Results Chest X-ray: Image Reviewed (no i/e) EKG: Image Reviewed (af) Problem List - Problems (1) Elevated troponin I level Code(s): R79.89 - OTHER SPECIFIED ABNORMAL FINDINGS OF BLOOD CHEMISTRY (2) Multiple falls Code(s): R29.6 - REPEATED FALLS (3) Epistaxis Code(s): R04.0 - EPISTAXIS Assessment/Plan 89yoM with history of atrial fibrillation on Eliquis, HTN, HLD, anemia, and remote history of colon cancer who presents from [facility] after being found on the floor. r/o syncope Positive TNIs c. duplex no significant obstruction kamar; ECHO Telemetry cont present rx with BB and Allen
[2019-12-11] MEDS ORDERED: FAMOTIDINE 20 MG TABLET ONE (09:36)
[2019-12-11] MEDS ORDERED: APIXABAN 2.5 MG TABLET ONE (09:37)
--- NOTE | 2019-12-11 09:58 | EKG ---
Test Reason : Blood Pressure : / mmHG Vent. Rate : 111 BPM Atrial Rate : 163 BPM P-R Int : 000 ms QRS Dur : 090 ms QT Int : 304 ms P-R-T Axes : 000 047 007 degrees QTc Int : 413 ms POOR DATA QUALITY, INTERPRETATION MAY BE ADVERSELY AFFECTED ATRIAL FIBRILLATION WITH RAPID VENTRICULAR RESPONSE WITH PREMATURE VENTRICULAR OR ABERRANTLY CONDUCTED COMPLEXES NONSPECIFIC T WAVE ABNORMALITY ABNORMAL ECG WHEN COMPARED WITH ECG OF 10-DEC-2019 21:08, NONSPECIFIC T WAVE ABNORMALITY NOW EVIDENT IN LATERAL LEADS Confirmed by Francisco Vora ([id number]) on 12/11/2019 9:58:20 AM Referred By: Confirmed By:Francisco Vora
--- NOTE | 2019-12-11 09:59 | EKG ---
Test Reason : Blood Pressure : / mmHG Vent. Rate : 126 BPM Atrial Rate : 150 BPM P-R Int : 000 ms QRS Dur : 082 ms QT Int : 324 ms P-R-T Axes : 000 035 -30 degrees QTc Int : 469 ms POOR DATA QUALITY, INTERPRETATION MAY BE ADVERSELY AFFECTED ATRIAL FIBRILLATION WITH RAPID VENTRICULAR RESPONSE WITH PREMATURE VENTRICULAR OR ABERRANTLY CONDUCTED COMPLEXES NONSPECIFIC ST ABNORMALITY ABNORMAL QRS-T ANGLE, CONSIDER PRIMARY T WAVE ABNORMALITY ABNORMAL ECG WHEN COMPARED WITH ECG OF 03-DEC-2019 19:07, VENT. RATE HAS INCREASED BY 43 BPM Confirmed by Francisco Vora ([id number]) on 12/11/2019 9:59:14 AM Referred By: Confirmed By:Francisco Vora
[2019-12-11] MEDS: FAMOTIDINE 20 MG TABLET PO SCH (10:00)
[2019-12-11] MEDS: APIXABAN 2.5 MG TABLET PO SCH ×2 (10:00→21:08)
--- NOTE | 2019-12-11 15:27 | ECHO ---
Name: ALLI HOBBS Exam:Adult Echocardiogram Study Date: 12/11/2019 02:35 PM Age: 89 yrs Reason For Study: LV Function Height: 70 in Weight: 164 lb BSA: 1.9 m2 MMode/2D Measurements & Calculations IVSd: 1.3 cm Ao root diam: 3.7 cm LVIDd: 4.1 cm LA dimension: 3.6 cm LVIDs: 2.8 cm LVPWd: 1.2 cm EDV(Teich): 74.8 ml LVOT diam: 2.0 cm ESV(Teich): 30.7 ml Doppler Measurements & Calculations MV E max patricio: 107.0 cm/sec Ao V2 max: 154.3 cm/sec MV A max patricio: 56.0 cm/sec Ao max P.5 mmHg MV E/A: 1.9 AI P1/2t: 453.9 msec MV dec time: 0.11 sec RAFA(V,D): 1.5 cm2 AI max patricio: 451.5 cm/sec LV V1 max P.3 mmHg AI max P.6 mmHg LV V1 max: 75.1 cm/sec AI dec slope: 291.4 cm/sec2 TR max patricio: 334.5 cm/sec PA V2 max: 76.9 cm/sec TR max P.2 mmHg PA max P.4 mmHg Med Peak E' Patricio: 9.1 cm/sec PI Vmax: 87.5 cm/sec Med E/e': 11.7 Lat Peak E' Patricio: 14.4 cm/sec Lat E/e': 7.5 Procedure A complete two-dimensional transthoracic echocardiogram was performed (2D, M-mode, Doppler and color flow Doppler). Left Ventricle The left ventricular size, thickness and function are normal. Ejection Fraction = 55%. Right Ventricle The right ventricle is normal in size and function. Atria The left atrium is severely dilated. The right atrium is mildly dilated. Mitral Valve The mitral valve is normal in structure and function. There is no mitral valve stenosis. There is no mitral regurgitation noted. Tricuspid Valve The tricuspid valve is normal in structure and function. There is mild tricuspid regurgitation. Assum ing the RA pressure is 15 mmHg. There is moderate pulmonary hypertension. Right ventricular systolic pressure is elevated at 60 mmhg. Aortic Valve There is mild aortic sclerosis.;. No hemodynamically significant valvular aortic stenosis. Mild aorti c regurgitation. Pulmonic Valve The pulmonic valve is not well visualized. Great Vessels Mild aortic root dilatation. Pericardium/Pleura There is no pericardial effusion. Interpretation Summary The left ventricular size, thickness and function are normal The right ventricle is normal in size and function. The left atrium is severely dilated. There is moderate pulmonary hypertension. Mild aortic root dilatation. Francisco Vora 12/11/2019 03:26 PM
--- NOTE | 2019-12-11 17:22 | PN ---
Progress Note (short form) - Note Progress Note: No complaints confused at baseline events noted Vital Signs - 24 hr 12/11/19 12/11/19 12/11/19 01:55 05:45 09:06 Temperature 97.7 F 97.7 F 97.6 F Pulse Rate Pulse Rate [ 80 103 H 100 H Right Radial] Respiratory 14 17 19 Rate Blood Pressure Blood Pressure 110/77 112/77 135/97 [Left Arm] O2 Sat by Pulse 95 97 100 Oximetry (%) 12/11/19 12/11/19 13:21 19:00 Temperature 97.7 F 97.8 F Pulse Rate 105 H Pulse Rate [ 90 Right Radial] Respiratory 18 18 Rate Blood Pressure 92/55 L Blood Pressure 133/81 [Left Arm] O2 Sat by Pulse 99 95 Oximetry (%) Current Medications Generic Name Dose Route Start Last Admin Trade Name Freq PRN Reason Stop Dose Admin Acetaminophen 650 mg 12/11/19 03:15 Tylenol - PO Q4H PRN PAIN LEVEL 1-5 Apixaban 2.5 mg 12/11/19 10:00 12/11/19 10:00 Eliquis - PO 2.5 mg BID IMELDA Administration Famotidine 20 mg 12/11/19 10:00 12/11/19 10:00 Pepcid - PO 20 mg DAILY IMELDA Administration Metoprolol Succinate 50 mg 12/11/19 10:00 12/11/19 10:00 Toprol Xl - PO 50 mg DAILY IMELDA Administration Laboratory Results - last 24 hr 12/10/19 12/10/19 12/10/19 02:08 21:35 21:35 WBC 5.5 RBC 2.99 L Hgb 9.8 L Hct 28.7 L D MCV 95.7 MCH 32.7 MCHC 34.1 RDW 15.0 Plt Count 192 MPV 8.6 D Absolute Neuts (auto) 4.4 Neutrophils % 79.4 Lymphocytes % 10.0 Monocytes % 8.1 Eosinophils % 1.6 Basophils % 0.9 Nucleated RBC % 0 PT with INR 14.30 H INR 1.21 H PTT (Actin FS) 25.6 Sodium Potassium Chloride Carbon Dioxide Anion Gap BUN Creatinine Est GFR (CKD-EPI)AfAm Est GFR (CKD-EPI)NonAf Random Glucose Hemoglobin A1c % Lactic Acid Calcium Total Bilirubin AST ALT Alkaline Phosphatase Creatine Kinase Creatine Kinase Index CK-MB (CK-2) Troponin I Total Protein Albumin Triglycerides Cholesterol Total LDL Cholesterol HDL Cholesterol Urine Color Yellow Urine Appearance Clear Urine pH 5.0 Ur Specific [place] 1.015 Urine Protein Negative Urine Glucose (UA) Negative Urine Ketones Negative Urine Blood Negative Urine Nitrite Negative Urine Bilirubin Negative Urine Urobilinogen 0.2 Ur Leukocyte Esterase Negative Blood Type Antibody Screen 12/10/19 12/10/19 12/10/19 21:35 21:35 21:35 WBC RBC Hgb Hct MCV MCH MCHC RDW Plt Count MPV Absolute Neuts (auto) Neutrophils % Lymphocytes % Monocytes % Eosinophils % Basophils % Nucleated RBC % PT with INR INR PTT (Actin FS) Sodium 137 Potassium 6.3 H* Chloride 107 Carbon Dioxide 24 Anion Gap 6 L BUN 47.5 H Creatinine 1.7 H Est GFR (CKD-EPI)AfAm 41.11 Est GFR (CKD-EPI)NonAf 35.47 Random Glucose 101 Hemoglobin A1c % Lactic Acid 1.1 Calcium 8.5 Total Bilirubin 0.4 AST 80 H ALT 25 Alkaline Phosphatase 99 Creatine Kinase Creatine Kinase Index CK-MB (CK-2) Troponin I 1.24 H* Total Protein 6.8 Albumin 2.9 L Triglycerides Cholesterol Total LDL Cholesterol HDL Cholesterol Urine Color Urine Appearance Urine pH Ur Specific [place] Urine Protein Urine Glucose (UA) Urine Ketones Urine Blood Urine Nitrite Urine Bilirubin Urine Urobilinogen Ur Leukocyte Esterase Blood Type B POSITIVE Antibody Screen Negative 12/10/19 12/11/19 12/11/19 23:46 05:45 05:45 WBC 5.3 RBC 3.09 L Hgb 10.2 L Hct 29.9 L MCV 96.7 H MCH 33.0 MCHC 34.2 RDW 15.0 Plt Count 164 MPV 7.8 Absolute Neuts (auto) Neutrophils % Lymphocytes % Monocytes % Eosinophils % Basophils % Nucleated RBC % PT with INR INR PTT (Actin FS) Sodium 139 140 Potassium 5.2 H 4.7 Chloride 110 H 108 H Carbon Dioxide 24 26 Anion Gap 5 L 6 L BUN 48.1 H 43.5 H Creatinine 1.6 H 1.6 H Est GFR (CKD-EPI)AfAm 44.24 44.24 Est GFR (CKD-EPI)NonAf 38.17 38.17 Random Glucose 103 98 Hemoglobin A1c % Lactic Acid Calcium 8.6 8.7 Total Bilirubin AST ALT Alkaline Phosphatase Creatine Kinase 427 H Creatine Kinase Index 3.8 CK-MB (CK-2) 16.6 H Troponin I 1.15 H* 1.44 H* Total Protein Albumin Triglycerides 120 Cholesterol 156 Total LDL Cholesterol 90 HDL Cholesterol 59 Urine Color Urine Appearance Urine pH Ur Specific [place] Urine Protein Urine Glucose (UA) Urine Ketones Urine Blood Urine Nitrite Urine Bilirubin Urine Urobilinogen Ur Leukocyte Esterase Blood Type Antibody Screen 12/11/19 05:45 WBC RBC Hgb Hct MCV MCH MCHC RDW Plt Count MPV Absolute Neuts (auto) Neutrophils % Lymphocytes % Monocytes % Eosinophils % Basophils % Nucleated RBC % PT with INR INR PTT (Actin FS) Sodium Potassium Chloride Carbon Dioxide Anion Gap BUN Creatinine Est GFR (CKD-EPI)AfAm Est GFR (CKD-EPI)NonAf Random Glucose Hemoglobin A1c % 5.6 Lactic Acid Calcium Total Bilirubin AST ALT Alkaline Phosphatase Creatine Kinase Creatine Kinase Index CK-MB (CK-2) Troponin I Total Protein Albumin Triglycerides Cholesterol Total LDL Cholesterol HDL Cholesterol Urine Color Urine Appearance Urine pH Ur Specific [place] Urine Protein Urine Glucose (UA) Urine Ketones Urine Blood Urine Nitrite Urine Bilirubin Urine Urobilinogen Ur Leukocyte Esterase Blood Type Antibody Screen S1 S2 Irregular Lungs clear Abd- soft, NT No edema ASSESSMENT/PLAN: Chay is an 89 year old with PMH afib on eliquis presenting to the ED after an unwitnessed fall at rehab center, found to have NSTEMI and complaining of left upper extremity pain. #NSTEMI - Initial troponin elevated 1.24; 3rd TnI elevated - Likely due to demand ischemia secondary to afib RVR - ECHO ordered - Cardiology consulted- appreciated #Afib with RVR - Received 50 metoprolol in ED, decreasing rate from 126 to 111 - Goal rate <110 # Left upper extremity pain - Patient reporting pain in shoulder and elbow with decreased strength and ROM - shoulder imaging -- osteoarthritis # Acute Anemia - Baseline Hb 11.8, 9.8 on admission - Likely due to epistaxis 1 week ago - Monitor H/H DVT prophylaxis: Eliquis Problem List - Problems (1) Elevated troponin I level Code(s): R79.89 - OTHER SPECIFIED ABNORMAL FINDINGS OF BLOOD CHEMISTRY (2) Multiple falls Code(s): R29.6 - REPEATED FALLS (3) Epistaxis Code(s): R04.0 - EPISTAXIS
[2019-12-11] MEDS: ACETAMINOPHEN 325 MG TABLET (FP) PO PRN (21:08)
[2019-12-12 06:52] LABS: EOS % 2.8 % (0-4.5); HEMATOCRIT 29.9 % (35.4-49); HEMOGLOBIN 9.9 GM/dL (11.7-16.9); LYMPH % 9.7 % (8-40); MCH 31.9 pg (25.7-33.7); MCHC 33.1 g/dl (32.0-35.9); MEAN CELL VOLUME 96.5 fl (80-96); MEAN PLT VOLUME 7.7 fl (7.5-11.1); MONO % 7.8 % (3.8-10.2); NEUT % 78.7 % (42.8-82.8); PLATELET COUNT 163 K/MM3 (134-434); RDW 14.9 % (11.9-15.9); WHITE BLOOD COUNT 5.8 K/mm3 (4.0-10.0)
[2019-12-12 07:22] LABS: ALBUMIN 2.9 g/dl (3.4-5.0); BLOOD UREA NITROGEN 39.3 mg/dL (7-18); CALCIUM 8.7 mg/dL (8.5-10.1); CREATININE 1.5 mg/dL (0.55-1.3); POTASSIUM 4.3 mmol/L (3.5-5.1); TOT PROT 6.1 g/dl (6.4-8.2)
[2019-12-12 07:44] LABS: BILIRUBIN,TOTAL 0.4 mg/dL (0.2-1)
[2019-12-12] MEDS: APIXABAN 2.5 MG TABLET PO SCH ×2 (09:40→21:14)
[2019-12-12] MEDS: ACETAMINOPHEN 325 MG TABLET (FP) PO PRN (09:40)
[2019-12-12] MEDS: FAMOTIDINE 20 MG TABLET PO SCH (09:40)
--- NOTE | 2019-12-12 11:20 | PN ---
Progress Note, Physician Chief Complaint: Pt agitated; says "leave me alone"; refuses to open his mouth for aide to feed him. History of Present Illness: Mr. Fuentes is an 89 yr old man with PM history of atrial fibrillation on Eliquis, HTN, HLD, anemia, and remote history of colon cancer, who presents from [facility] after being found on the floor. Patient is a poor historian but he states he has been having palpitations recently without chest pain or shortness of breath. 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 He states he fell out of bed while trying to eat a meal but does not know how or why. He cannot say if he hit his head or lost consciousness. ED work up notable for hgb 9.8 from 11.8 a week prior, creatinine 1.6, troponin 1.24. EKG showing atrial fibrillation without acute ST or T wave changes. CT head and C-spine showed no acute findings. He received metoprolol tartrate 50mg PO. Admission requested for ACS work up. At time of evaluation patient denies chest pain. - Current Medication List Current Medications: Active Medications Acetaminophen (Tylenol -) 650 mg PO Q4H PRN PRN Reason: PAIN LEVEL 1-5 Last Admin: 12/12/19 09:40 Dose: 650 mg Documented by: Apixaban (Eliquis -) 2.5 mg PO BID [facility] Last Admin: 12/12/19 09:40 Dose: 2.5 mg Documented by: Famotidine (Pepcid -) 20 mg PO DAILY [facility] Last Admin: 12/12/19 09:40 Dose: 20 mg Documented by: Metoprolol Succinate (Toprol Xl -) 50 mg PO DAILY [facility] Last Admin: 12/12/19 09:40 Dose: 50 mg Documented by: Pneumococcal 13-Valent Conj Vacc (Prevnar 13 Syringe -) 0.5 ml IM .ONCE ONE Stop: 12/11/19 22:41 - Objective Vital Signs: Vital Signs Temperature 97.4 F L 12/12/19 08:23 Pulse Rate 107 H 12/12/19 08:23 Respiratory Rate 19 12/12/19 08:23 Blood Pressure 128/82 12/12/19 08:23 O2 Sat by Pulse Oximetry (%) 97 12/12/19 08:25 Labs: CBC, BMP 12/12/19 05:57 12/12/19 05:57 INR, PTT INR 1.21 (0.83-1.09) H 12/10/19 21:35 Assessment/Plan 89yoM with history of atrial fibrillation on metoprolol and Eliquis, HTN, HLD, anemia, and remote history of colon cancer, who presents from [facility] after being found on the floor. confusion r/o syncope Positive TNIs: multiple contributers to demand ischemia, including AF, anemia. c. duplex no significant obstruction Rec: COVID not detected. ECHO: normal LVEF; severe LAE; no wall motion abnormalities mentioned; moderate pulmonary HTN; mild aortic root dilatation. orthostatic vital signs Maintain hydration. F/u BUN/Cr, electrolytes, daily weight, Is and Os. continue present rx with metoprolol ER and Eliquis
--- NOTE | 2019-12-12 11:57 | PN ---
Progress Note (short form) - Note Progress Note: No complaints spoke to his son---pt was coherent up until 2 weeks ago-- he had frequent falls he had good memory as per son-- he calls him mostly and tests his memory which has been sharp till 2 weeks ago events noted Vital Signs - 24 hr 12/11/19 12/11/19 12/11/19 19:00 21:00 22:25 Temperature 97.8 F 98.2 F 98.2 F Pulse Rate 105 H 118 H 118 H Respiratory 18 18 18 Rate Blood Pressure 92/55 L 108/83 108/83 O2 Sat by Pulse 95 97 97 Oximetry (%) 12/12/19 12/12/19 12/12/19 01:00 05:00 08:23 Temperature 98.1 F 97.7 F 97.4 F L Pulse Rate 106 H 108 H 107 H Respiratory 18 18 19 Rate Blood Pressure 105/80 105/72 128/82 O2 Sat by Pulse 97 98 97 Oximetry (%) 12/12/19 12/12/19 08:25 14:08 Temperature 98.1 F Pulse Rate 95 H Respiratory 16 Rate Blood Pressure 113/67 O2 Sat by Pulse 97 Oximetry (%) Current Medications Generic Name Dose Route Start Last Admin Trade Name Freq PRN Reason Stop Dose Admin Acetaminophen 650 mg 12/11/19 03:15 12/12/19 09:40 Tylenol - PO 650 mg Q4H PRN Administration PAIN LEVEL 1-5 Apixaban 2.5 mg 12/11/19 10:00 12/12/19 09:40 Eliquis - PO 2.5 mg BID IMELDA Administration Famotidine 20 mg 12/11/19 10:00 12/12/19 09:40 Pepcid - PO 20 mg DAILY IMELDA Administration Metoprolol Succinate 50 mg 12/11/19 10:00 12/12/19 09:40 Toprol Xl - PO 50 mg DAILY IMELDA Administration Pneumococcal 13-Valent Conj Vacc 0.5 ml 12/11/19 22:40 Prevnar 13 Syringe - IM 12/11/19 22:41 .ONCE ONE Laboratory Results - last 24 hr 12/12/19 12/12/19 05:57 05:57 WBC 5.8 RBC 3.10 L Hgb 9.9 L Hct 29.9 L MCV 96.5 H MCH 31.9 MCHC 33.1 RDW 14.9 Plt Count 163 MPV 7.7 Absolute Neuts (auto) 4.5 Neutrophils % 78.7 Lymphocytes % 9.7 Monocytes % 7.8 Eosinophils % 2.8 Basophils % 1.0 Nucleated RBC % 0 Sodium 143 Potassium 4.3 Chloride 114 H Carbon Dioxide 23 Anion Gap 6 L BUN 39.3 H Creatinine 1.5 H Est GFR (CKD-EPI)AfAm 47.83 Est GFR (CKD-EPI)NonAf 41.27 Random Glucose 100 Calcium 8.7 Total Bilirubin 0.4 AST 53 H ALT 22 Alkaline Phosphatase 99 Total Protein 6.1 L Albumin 2.9 L TSH 2.67 Free T4 0.93 S1S2 irregular Lungs clear Abd- soft, NT No edema ASSESSMENT/PLAN: Chay is an 89 year old with PMH afib on eliquis presenting to the ED after an unwitnessed fall at rehab center, found to have NSTEMI confused, drowsy #NSTEMI - Initial troponin elevated 1.24; 3rd TnI elevated - Likely due to demand ischemia secondary to afib RVR - ECHO ordered-- noted-- normal LV EF - Cardiology consulted-- appreciated # AMS-- UA negative pt was oriented before per son - CT head negative has had multiple falls in the past which is why he in the [place] will consult Neurology #Afib with RVR - Received 50 metoprolol in ED, decreasing rate from 126 to 111 - Goal rate <110 # Left upper extremity pain - Patient reporting pain in shoulder and elbow with decreased strength and ROM - shoulder imaging -- osteoarthritis # Acute Anemia - Baseline Hb 11.8, 9.8 on admission - Likely due to epistaxis 1 week ago - Monitor H/H DVT prophylaxis: Eliquis Problem List - Problems (1) Elevated troponin I level Code(s): R79.89 - OTHER SPECIFIED ABNORMAL FINDINGS OF BLOOD CHEMISTRY (2) Multiple falls Code(s): R29.6 - REPEATED FALLS (3) Epistaxis Code(s): R04.0 - EPISTAXIS
[2019-12-13 06:33] LABS: HEMATOCRIT 29.4 % (35.4-49); HEMOGLOBIN 9.8 GM/dL (11.7-16.9); MCH 31.8 pg (25.7-33.7); MCHC 33.2 g/dl (32.0-35.9); MEAN CELL VOLUME 95.7 fl (80-96); MEAN PLT VOLUME 7.6 fl (7.5-11.1); PLATELET COUNT 150 K/MM3 (134-434); RBC 3.07 M/mm3 (4.00-5.60); WHITE BLOOD COUNT 6.6 K/mm3 (4.0-10.0)
[2019-12-13 07:01] LABS: ALBUMIN 2.7 g/dl (3.4-5.0); BILIRUBIN,TOTAL 0.3 mg/dL (0.2-1); BLOOD UREA NITROGEN 37.4 mg/dL (7-18); CALCIUM 8.5 mg/dL (8.5-10.1); CREATININE 1.7 mg/dL (0.55-1.3); POTASSIUM 4.3 mmol/L (3.5-5.1); TOT PROT 6.1 g/dl (6.4-8.2)
--- NOTE | 2019-12-13 08:27 | PN ---
Progress Note, Physician History of Present Illness: 89yoM with history of atrial fibrillation on Eliquis, HTN, HLD, anemia, and remote history of colon cancer who presents from [facility] after being found on the floor. Patient is a poor historian but he states he has been having palpitations recently without chest pain or shortness of breath. 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 He states he fell out of bed while trying to eat a meal but does not know how or why. He cannot say if he hit his head or lost consciousness. ED work up notable for hgb 9.8 from 11.8 a week prior, creatinine 1.6, troponin 1.24. EKG showing atrial fibrillation without acute ST or T wave changes. CT head and C-spine showed no acute findings. He received metoprolol tartrate 50mg PO. Admission requested for ACS work up. At time of evaluation patient denies chest pain. - Current Medication List Current Medications: Active Medications Acetaminophen (Tylenol -) 650 mg PO Q4H PRN PRN Reason: PAIN LEVEL 1-5 Last Admin: 12/12/19 09:40 Dose: 650 mg Documented by: Apixaban (Eliquis -) 2.5 mg PO BID [facility] Last Admin: 12/12/19 21:14 Dose: 2.5 mg Documented by: Famotidine (Pepcid -) 20 mg PO DAILY [facility] Last Admin: 12/12/19 09:40 Dose: 20 mg Documented by: Metoprolol Succinate (Toprol Xl -) 50 mg PO DAILY [facility] Last Admin: 12/12/19 09:40 Dose: 50 mg Documented by: Pneumococcal 13-Valent Conj Vacc (Prevnar 13 Syringe -) 0.5 ml IM .ONCE ONE Stop: 12/11/19 22:41 - Objective Vital Signs: Vital Signs Temperature 98.6 F 12/13/19 06:00 Pulse Rate 113 H 12/13/19 06:00 Respiratory Rate 20 12/13/19 06:00 Blood Pressure 118/68 12/13/19 06:00 O2 Sat by Pulse Oximetry (%) 95 12/13/19 06:00 Eyes: Yes: WNL, Conjunctiva Clear, EOM Intact HENT: Yes: WNL, Atraumatic, Normocephalic Neck: Yes: WNL, Supple, Trachea Midline Cardiovascular: Yes: Pulse Irregular Respiratory: Yes: WNL, Regular, CTA Bilaterally Gastrointestinal: Yes: WNL, Normal Bowel Sounds Genitourinary: Yes: WNL Musculoskeletal: Yes: WNL Extremities: Yes: WNL Edema: No Integumentary: Yes: WNL Neurological: Yes: WNL, Alert, Oriented ...Motor Strength: WNL Psychiatric: Yes: WNL Labs: CBC, BMP 12/13/19 05:41 12/13/19 05:41 INR, PTT INR 1.21 (0.83-1.09) H 12/10/19 21:35 Problem List - Problems (1) Elevated troponin I level Code(s): R79.89 - OTHER SPECIFIED ABNORMAL FINDINGS OF BLOOD CHEMISTRY (2) Multiple falls Code(s): R29.6 - REPEATED FALLS (3) Epistaxis Code(s): R04.0 - EPISTAXIS Assessment/Plan 89yoM with history of atrial fibrillation on metoprolol and Eliquis, HTN, HLD, anemia, and remote history of colon cancer, who presents from [facility] after being found on the floor. confusion r/o syncope Positive TNIs: multiple contributers to demand ischemia, including AF, anemia. c. duplex no significant obstruction Rec: COVID not detected. ECHO: normal LVEF; severe LAE; no wall motion abnormalities mentioned; moderate pulmonary HTN; mild aortic root dilatation. orthostatic vital signs Maintain hydration. F/u BUN/Cr, electrolytes, daily weight, Is and Os. continue present rx with metoprolol ER and Eliquis
[2019-12-13] MEDS: FAMOTIDINE 20 MG TABLET PO SCH (09:05)
[2019-12-13] MEDS: APIXABAN 2.5 MG TABLET PO SCH ×2 (09:05→21:12)
[2019-12-13] MEDS ORDERED: PNEUMOC 13-VAL CONJ-DIP CRM/PF 0.5 ML DISP.SYRIN IM ONE (10:15)
--- NOTE | 2019-12-13 10:33 | EKG ---
Test Reason : Blood Pressure : / mmHG Vent. Rate : 128 BPM Atrial Rate : 115 BPM P-R Int : 000 ms QRS Dur : 088 ms QT Int : 326 ms P-R-T Axes : 000 063 -39 degrees QTc Int : 475 ms ATRIAL FIBRILLATION WITH RAPID VENTRICULAR RESPONSE WITH PREMATURE VENTRICULAR OR ABERRANTLY CONDUCTED COMPLEXES NONSPECIFIC ST AND T WAVE ABNORMALITY ABNORMAL ECG WHEN COMPARED WITH ECG OF 11-DEC-2019 00:22, NONSPECIFIC T WAVE ABNORMALITY, IMPROVED IN LATERAL LEADS Confirmed by LAWSON POPE MD ([id number]) on 12/13/2019 10:32:49 AM Referred By: DR. PATEL Confirmed By:LAWSON POPE MD
--- NOTE | 2019-12-13 11:27 | PN ---
Progress Note, Physician History of Present Illness: Pt seen/ examined chart is reviewed awake comfortable poor historian h/r still tachy Increased troponins-- I had added to labs for today - Current Medication List Current Medications: Active Medications Acetaminophen (Tylenol -) 650 mg PO Q4H PRN PRN Reason: PAIN LEVEL 1-5 Last Admin: 12/12/19 09:40 Dose: 650 mg Documented by: Apixaban (Eliquis -) 2.5 mg PO BID [facility] Last Admin: 12/13/19 09:05 Dose: 2.5 mg Documented by: Famotidine (Pepcid -) 20 mg PO DAILY [facility] Last Admin: 12/13/19 09:05 Dose: 20 mg Documented by: Metoprolol Succinate (Toprol Xl -) 50 mg PO DAILY [facility] Last Admin: 12/13/19 09:05 Dose: 50 mg Documented by: - Objective Vital Signs: Vital Signs Temperature 98.3 F 12/13/19 09:44 Pulse Rate 108 H 12/13/19 09:44 Respiratory Rate 12/13/19 09:44 Blood Pressure 131/96 12/13/19 09:44 O2 Sat by Pulse Oximetry (%) 99 12/13/19 09:44 Constitutional: Yes: No Distress Neck: Yes: Supple Cardiovascular: Yes: Pulse Irregular Respiratory: Yes: Diminished Gastrointestinal: Yes: Soft Edema: No Labs: CBC, BMP 12/13/19 05:41 12/13/19 05:41 INR, PTT INR 1.21 (0.83-1.09) H 12/10/19 21:35 Problem List - Problems (1) Elevated troponin I level Code(s): R79.89 - OTHER SPECIFIED ABNORMAL FINDINGS OF BLOOD CHEMISTRY (2) Multiple falls Code(s): R29.6 - REPEATED FALLS (3) Rapid atrial fibrillation Code(s): I48.91 - UNSPECIFIED ATRIAL FIBRILLATION Assessment/Plan D/W RN Monitor on tele Cardio to follow up on rapid afib and elevated troponin Monitor Will follow
[2019-12-13] MEDS: ASPIRIN COATED 81 MG TABLET.EC PO SCH (14:51)
[2019-12-14] MEDS: ASPIRIN COATED 81 MG TABLET.EC PO SCH (09:05)
[2019-12-14] MEDS: APIXABAN 2.5 MG TABLET PO SCH ×2 (09:06→22:20)
[2019-12-14] MEDS: ACETAMINOPHEN 325 MG TABLET (FP) PO PRN (09:06)
[2019-12-14] MEDS: FAMOTIDINE 20 MG TABLET PO SCH (09:06)
--- NOTE | 2019-12-14 10:44 | CON.NEURO ---
Consult Consult Specialty:: neurology Reason for Consultation:: AMS - History of Present Illness Chief Complaint: AMS History of Present Illness: 89yoM with history of atrial fibrillation on Eliquis, HTN, HLD, anemia, and remote history of colon cancer who presents from [facility] after being found on the floor. Patient is a poor historian but he states he has been having palpitations recently without chest pain or shortness of breath. 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 He states he fell out of bed while trying to eat a meal but does not know how or why. He cannot say if he hit his head or lost consciousness. Pt seen at the bedside, chart reviewed ; pt non verbal not able to provide hx ; per RN pt speak few words sometimes , now lethargic. From NH p/w AMS, fall, found on fl, CTH -, Afiv RVR on AC. Trop high under investigation. - History Source History Provided By: Medical Record Limitations to Obtaining History: Poor Historian - Past Medical History Cardio/Vascular: Yes: AFIB, HTN, Hyperlipdemia - Smoking History Smoking history: Never smoked Have you smoked in the past 12 months: No Home Medications - Allergies Allergies/Adverse Reactions: Allergies Allergy/AdvReac Type Severity Reaction Status Date / Time naproxen [From Naprosyn] Allergy Verified 12/10/19 17:56 tamsulosin Allergy Verified 12/10/19 17:56 terazosin Allergy Verified 12/10/19 17:56 - Home Medications Home Medications: Ambulatory Orders Aa/Hydrolyzed Collagen, Whey [Lps 15-30 Liquid] 30 ml PO BID 12/11/19 Acetaminophen 650 mg PO Q6H PRN 12/11/19 Allopurinol [Zyloprim -] 100 mg PO BID 12/11/19 Ammonium Lactate Lotion [Lac-Hydrin 12% Lotion -] 1 applic TP DAILY 12/11/19 Amoxicillin - [Amoxicillin 500mg Capsule -] 1,000 mg PO BID 12/11/19 Apixaban [Eliquis] 2.5 mg PO BID 12/11/19 Ascorbate Calcium [Vitamin C] 500 mg PO DAILY 12/11/19 Bacillus Coagulans [Bacid with Lactospore] 250 mg PO TID 12/11/19 Cyanocobalamin (Vitamin B-12) [B-12] 1,000 mcg PO DAILY 12/11/19 Famotidine 20 mg PO DAILY 12/11/19 Ferrous Sulfate [Iron] 325 mg PO DAILY 12/11/19 Finasteride 5 mg PO DAILY 12/11/19 Fluticasone/Vilanterol [Breo Ellipta 100-25 Mcg INH] 1 each IH DAILY 12/11/19 Furosemide 20 mg PO DAILY MDD 60 mg 12/11/19 Furosemide 40 mg PO DAILY MDD 60 mg 12/11/19 Lidocaine [Aspercreme] 1 each TP DAILY 12/11/19 Melatonin/Pyridoxine HCl (B6) [Melatonin 5 mg Tablet] 1 each PO HS 12/11/19 Metoprolol Succinate 50 mg PO DAILY 12/11/19 Montelukast Sodium [Singulair] 10 mg PO HS 12/11/19 Polyethylene Glycol 3350 [Miralax (For Daily Use) -] 17 gm PO PRN PRN 12/11/19 Polyvinyl Alcohol [Artificial Tears] 1 drop OD ASDIR 12/11/19 Potassium Chloride 40 meq PO BID 12/11/19 Sodium Chloride Nasal [place] [[place] Nasal [place] -] 1 spray NS PRN PRN 12/11/19 Spironolactone [Aldactone] 25 mg PO DAILY 12/11/19 Tramadol HCl 50 mg PO Q8H PRN 12/11/19 Review of Systems Unable to obtain ROS, reason: AMS Physical Exam-Neuro Vital Signs: Vital Signs Temperature 98.3 F 12/14/19 09:48 Pulse Rate 101 H 12/14/19 09:48 Respiratory Rate 20 12/14/19 09:48 Blood Pressure 114/75 12/14/19 09:48 O2 Sat by Pulse Oximetry (%) 97 12/14/19 09:48 Constitutional: Yes: Moderate Distress Neck: Yes: Supple Cardiovascular: Yes: WNL Respiratory: Yes: Regular Musculoskeletal: Yes: Joint Stiffness Edema: No Psychiatric: Yes: Other (Lethargic) Labs: CBC, BMP 12/13/19 05:41 12/13/19 05:41 INR, PTT INR 1.21 (0.83-1.09) H 12/10/19 21:35 - Neuro Exam Level Of Consciousness: Yes: Sedated Eyes: Yes: PERRL Speech: Incomprehensible Cranial Nerves II-XII Intact: Yes Gag: Present DTR's: 1+ Left Bicep, 1+ Right Bicep, 1+ Left Tricep, 1+ Right Tricep, 1+ Left Brachioradialis, 1+ Right Brachioradialis, 1+ Left Achilles, 1+ Right Achilles Babinski: Present (L upgoing toe) Motor Strength: 2/5: Left Arm, Left Leg (spastic plegic) Gait: Deferred Imaging - Results Cat Scan: Report Reviewed, Image Reviewed (Old L cerebellar inf CT neck -ve) Problem List - Problems (1) Encephalopathy Code(s): G93.40 - ENCEPHALOPATHY, UNSPECIFIED (2) Multiple falls Code(s): R29.6 - REPEATED FALLS (3) Rapid atrial fibrillation Code(s): I48.91 - UNSPECIFIED ATRIAL FIBRILLATION Assessment/Plan 89yoM with history of atrial fibrillation on Eliquis, HTN, HLD, anemia, and remote history of colon cancer who presents from [facility] after being found on the floor. Pt lethargic, non verbal , open his eyes w force sometimes , withdraw to pain , L side spastic, L upgoing toe; no clinical seizure ; CTH wo no acute [employer]OR[employer] CL[employer] pathology on 12/09; afib on AC and baby asp , trop high under investigation;HB < 10 ; Cr mildly elevated , ? CKD . AMS due to encephalopathy , metabolic vs infectious ; ? non convulsive seizure ; I suggest repeat CTH wo ; EEG routine ; PT/OT , fall and seizure precautions. Health maintenance per primary team. Amadou Escobedo MD [phone]
--- NOTE | 2019-12-14 10:52 | PN ---
Progress Note, Physician History of Present Illness: 89yoM with history of atrial fibrillation on Eliquis, HTN, HLD, anemia, and remote history of colon cancer who presents from [facility] after being found on the floor. Patient is a poor historian but he states he has been having palpitations recently without chest pain or shortness of breath. 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 He states he fell out of bed while trying to eat a meal but does not know how or why. He cannot say if he hit his head or lost consciousness. ED work up notable for hgb 9.8 from 11.8 a week prior, creatinine 1.6, troponin 1.24. EKG showing atrial fibrillation without acute ST or T wave changes. CT head and C-spine showed no acute findings. He received metoprolol tartrate 50mg PO. Admission requested for ACS work up. At time of evaluation patient denies chest pain. - Current Medication List Current Medications: Active Medications Acetaminophen (Tylenol -) 650 mg PO Q4H PRN PRN Reason: PAIN LEVEL 1-5 Last Admin: 12/14/19 09:06 Dose: 650 mg Documented by: Apixaban (Eliquis -) 2.5 mg PO BID [facility] Last Admin: 12/14/19 09:06 Dose: 2.5 mg Documented by: Aspirin (Ecotrin -) 81 mg PO DAILY [facility] Last Admin: 12/14/19 09:05 Dose: 81 mg Documented by: Famotidine (Pepcid -) 20 mg PO DAILY [facility] Last Admin: 12/14/19 09:06 Dose: 20 mg Documented by: Metoprolol Succinate (Toprol Xl -) 100 mg PO DAILY [facility] Last Admin: 12/14/19 09:06 Dose: 100 mg Documented by: - Objective Vital Signs: Vital Signs Temperature 98.3 F 12/14/19 09:48 Pulse Rate 101 H 12/14/19 09:48 Respiratory Rate 20 12/14/19 09:48 Blood Pressure 114/75 12/14/19 09:48 O2 Sat by Pulse Oximetry (%) 97 12/14/19 09:48 Eyes: Yes: WNL, Conjunctiva Clear, EOM Intact HENT: Yes: WNL, Atraumatic, Normocephalic Neck: Yes: WNL, Supple, Trachea Midline Cardiovascular: Yes: WNL, Regular Rate and Rhythm Respiratory: Yes: WNL, Regular, CTA Bilaterally Gastrointestinal: Yes: WNL, Normal Bowel Sounds Genitourinary: Yes: WNL Musculoskeletal: Yes: WNL Extremities: Yes: WNL Edema: No Integumentary: Yes: WNL Neurological: Yes: Alert Labs: CBC, BMP 12/13/19 05:41 12/13/19 05:41 INR, PTT INR 1.21 (0.83-1.09) H 12/10/19 21:35 Problem List - Problems (1) Elevated troponin I level Code(s): R79.89 - OTHER SPECIFIED ABNORMAL FINDINGS OF BLOOD CHEMISTRY (2) Multiple falls Code(s): R29.6 - REPEATED FALLS (3) Epistaxis Code(s): R04.0 - EPISTAXIS Assessment/Plan 89yoM with history of atrial fibrillation on metoprolol and Eliquis, HTN, HLD, anemia, and remote history of colon cancer, who presents from [facility] after being found on the floor. confusion r/o syncope Positive TNIs: multiple contributers to demand ischemia, including AF, anemia. c. duplex no significant obstruction Rec: COVID not detected. ECHO: normal LVEF; severe LAE; no wall motion abnormalities mentioned; moderate pulmonary HTN; mild aortic root dilatation. orthostatic vital signs Maintain hydration. F/u BUN/Cr, electrolytes, daily weight, Is and Os. continue present rx with metoprolol ER and Eliquis
--- NOTE | 2019-12-14 11:29 | PN ---
Progress Note (short form) - Note Progress Note: No complaints spoke to his son before---pt was coherent up until 2 weeks ago-- he had frequent falls he had good memory as per son-- he calls him mostly and tests his memory which has been sharp till 2 weeks ago events noted he is still confused denies chest pain has pain in left shoulder when moved Vital Signs - 24 hr 12/13/19 12/13/19 12/13/19 13:00 18:00 21:00 Temperature 98.2 F 98.1 F Pulse Rate 103 H 91 H Respiratory 20 20 Rate Blood Pressure 127/85 92/57 L O2 Sat by Pulse 97 98 96 Oximetry (%) 12/13/19 12/14/19 12/14/19 22:00 02:00 06:00 Temperature 97.6 F 97.4 F L 98 F Pulse Rate 108 H 112 H 101 H Respiratory 20 20 20 Rate Blood Pressure 121/91 134/71 116/77 O2 Sat by Pulse 96 96 95 Oximetry (%) 12/14/19 12/14/19 09:00 09:48 Temperature 98.3 F Pulse Rate 101 H Respiratory 20 Rate Blood Pressure 114/75 O2 Sat by Pulse 97 97 Oximetry (%) Current Medications Generic Name Dose Route Start Last Admin Trade Name Freq PRN Reason Stop Dose Admin Acetaminophen 650 mg 12/11/19 03:15 12/14/19 09:06 Tylenol - PO 650 mg Q4H PRN Administration PAIN LEVEL 1-5 Apixaban 2.5 mg 12/11/19 10:00 12/14/19 09:06 Eliquis - PO 2.5 mg BID IMELDA Administration Aspirin 81 mg 12/13/19 14:00 12/14/19 09:05 Ecotrin - PO 81 mg DAILY IMELDA Administration Famotidine 20 mg 12/11/19 10:00 12/14/19 09:06 Pepcid - PO 20 mg DAILY IMELDA Administration Metoprolol Succinate 100 mg 12/14/19 10:00 12/14/19 09:06 Toprol Xl - PO 100 mg DAILY IMELDA Administration Laboratory Results - last 24 hr 12/13/19 05:41 Creatine Kinase Index 5.3 H CK-MB (CK-2) 11.6 H S1S2 irregular Lungs clear Abd- soft, NT No edema ASSESSMENT/PLAN: Chay is an 89 year old with PMH afib on eliquis presenting to the ED after an unwitnessed fall at rehab center, found to have NSTEMI confused, drowsy #NSTEMI - on ASA, Eliquis -- ordered cardiac enzymes today - ECHO ordered-- noted-- normal LV EF - Cardiology consulted-- appreciated # AMS-- UA negative pt was oriented before per son - CT head negative has had multiple falls in the past which is why he in the [facility] will consult Neurology -- appreciated -- for repeat CT head -- EEG -- ?related to NSTEMI, vascular event #Afib with RVR - Received 50 metoprolol in ED, decreasing rate from 126 to 111 - Goal rate <110 -- on Eliquis # Left upper extremity pain - Patient reporting pain in shoulder and elbow with decreased strength and ROM - shoulder imaging -- osteoarthritis -- check ct shoulder # Acute Anemia - Baseline Hb 11.8, 9.8 on admission - Likely due to epistaxis 1 week ago - Monitor H/H DVT prophylaxis: Eliqufawn Problem List - Problems (1) Elevated troponin I level Code(s): R79.89 - OTHER SPECIFIED ABNORMAL FINDINGS OF BLOOD CHEMISTRY (2) Multiple falls Code(s): R29.6 - REPEATED FALLS (3) Epistaxis Code(s): R04.0 - EPISTAXIS
[2019-12-14] MEDS ORDERED: ATORVASTATIN CA 80 MG TABLET (FP) PO ONE (13:23)
--- NOTE | 2019-12-14 23:18 | HOSP ---
Subjective - Review of Symptoms Events since last encounter: Hospitalist Encounter Microblog reviewed from this evening to call Dr Peck from Imaging systems consultant regarding Brain MRI report for this patient. Spoke with Dr Peck, who reports that the patient has multiple infarction bilaterally- extensive. Call placed to Dr. Escobedo's service Dr Escobedo called back, updated him on the Brain MRI results. Patient currently on Eliquis 2.5mg BID, Asa 81mg QD, Lipitor 80mg HS VS per primary RN: T 97.5, P 104, R 18, BP 109/65 No further orders D/W Samuel, primary RN for the patient. Will continue to monitor patient, PMD to resume care in am Physical Examination Vital Signs: Vital Signs Temperature 98.2 F 12/14/19 14:00 Pulse Rate 100 H 12/14/19 14:00 Respiratory Rate 16 12/14/19 14:00 Blood Pressure 115/58 L 12/14/19 14:00 O2 Sat by Pulse Oximetry (%) 97 12/14/19 09:48 Labs: CBC, BMP 12/13/19 05:41 12/13/19 05:41 Hospitalist Encounter Assessment: 89yoM with history of atrial fibrillation on Eliquis, HTN, HLD, anemia, and remote history of colon cancer who presents from [facility] after being found on the floor. Admitted to Telemetry for NSTEMI. Head CT #1- no ICH, small chronic right cerebellar infarct Head CT #2- suspected nonhemorrhagic infarct within the right occipital lobe. MRI follow up recommended Recommendations/Interventions: Discuss with family or HCP- Advance Directives, Goals of Care
[2019-12-15 07:06] LABS: HEMATOCRIT 30.9 % (35.4-49); MCH 31.1 pg (25.7-33.7); MCHC 32.3 g/dl (32.0-35.9); MEAN CELL VOLUME 96.3 fl (80-96); MEAN PLT VOLUME 7.5 fl (7.5-11.1); PLATELET COUNT 153 K/MM3 (134-434); RBC 3.21 M/mm3 (4.00-5.60); RDW 14.9 % (11.9-15.9); WHITE BLOOD COUNT 6.5 K/mm3 (4.0-10.0)
[2019-12-15 07:28] LABS: POTASSIUM 4.2 mmol/L (3.5-5.1)
[2019-12-15 07:37] LABS: ALBUMIN 2.8 g/dl (3.4-5.0); BILIRUBIN,TOTAL 0.6 mg/dL (0.2-1); BLOOD UREA NITROGEN 31.3 mg/dL (7-18); CALCIUM 8.6 mg/dL (8.5-10.1); CREATININE 1.5 mg/dL (0.55-1.3); TOT PROT 6.4 g/dl (6.4-8.2)
--- NOTE | 2019-12-15 09:51 | PN ---
Progress Note, Physician History of Present Illness: 89yoM with history of atrial fibrillation on Eliquis, HTN, HLD, anemia, and remote history of colon cancer who presents from [facility] after being found on the floor. Patient is a poor historian but he states he has been having palpitations recently without chest pain or shortness of breath. 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 He states he fell out of bed while trying to eat a meal but does not know how or why. He cannot say if he hit his head or lost consciousness. ED work up notable for hgb 9.8 from 11.8 a week prior, creatinine 1.6, troponin 1.24. EKG showing atrial fibrillation without acute ST or T wave changes. CT head and C-spine showed no acute findings. He received metoprolol tartrate 50mg PO. Admission requested for ACS work up. At time of evaluation patient denies chest pain. - Current Medication List Current Medications: Active Medications Acetaminophen (Tylenol -) 650 mg PO Q4H PRN PRN Reason: PAIN LEVEL 1-5 Last Admin: 12/14/19 09:06 Dose: 650 mg Documented by: Apixaban (Eliquis -) 2.5 mg PO BID [facility] Last Admin: 12/14/19 22:20 Dose: 2.5 mg Documented by: Aspirin (Ecotrin -) 81 mg PO DAILY [facility] Last Admin: 12/14/19 09:05 Dose: 81 mg Documented by: Atorvastatin Calcium (Lipitor -) 80 mg PO [facility] Famotidine (Pepcid -) 20 mg PO DAILY [facility] Last Admin: 12/14/19 09:06 Dose: 20 mg Documented by: Metoprolol Succinate (Toprol Xl -) 100 mg PO DAILY [facility] Last Admin: 12/14/19 09:06 Dose: 100 mg Documented by: - Objective Vital Signs: Vital Signs Temperature 98 F 12/15/19 06:00 Pulse Rate 91 H 12/15/19 06:00 Respiratory Rate 18 12/15/19 06:00 Blood Pressure 125/66 12/15/19 06:00 O2 Sat by Pulse Oximetry (%) 96 12/15/19 06:00 Eyes: Yes: WNL, Conjunctiva Clear, EOM Intact HENT: Yes: WNL, Atraumatic, Normocephalic Neck: Yes: WNL, Supple, Trachea Midline Cardiovascular: Yes: WNL, Regular Rate and Rhythm Respiratory: Yes: WNL, Regular, CTA Bilaterally Gastrointestinal: Yes: WNL, Normal Bowel Sounds Genitourinary: Yes: WNL Musculoskeletal: Yes: WNL Extremities: Yes: WNL Edema: No Integumentary: Yes: WNL Neurological: Yes: Lethargy Labs: CBC, BMP 12/15/19 06:27 12/15/19 06:27 INR, PTT INR 1.21 (0.83-1.09) H 12/10/19 21:35 Problem List - Problems (1) Elevated troponin I level Code(s): R79.89 - OTHER SPECIFIED ABNORMAL FINDINGS OF BLOOD CHEMISTRY (2) Multiple falls Code(s): R29.6 - REPEATED FALLS (3) Epistaxis Code(s): R04.0 - EPISTAXIS Assessment/Plan 89yoM with history of atrial fibrillation on metoprolol and Eliquis, HTN, HLD, anemia, and remote history of colon cancer, who presents from [facility] after being found on the floor. confusion - encephalopathy r/o syncope Positive TNIs: multiple contributers to demand ischemia, including AF, anemia. c. duplex no significant obstruction COVID not detected. Rec: ECHO: normal LVEF; severe LAE; no wall motion abnormalities mentioned; moderate pulmonary HTN; mild aortic root dilatation. orthostatic vital signs Maintain hydration. F/u BUN/Cr, electrolytes, daily weight, Is and Os. continue present rx with metoprolol ER and Eliquis and ASA
[2019-12-15] MEDS: APIXABAN 2.5 MG TABLET PO SCH ×3 (10:09→21:42)
[2019-12-15] MEDS: FAMOTIDINE 20 MG TABLET PO SCH (10:09)
[2019-12-15] MEDS: ASPIRIN COATED 81 MG TABLET.EC PO SCH (10:09)
--- NOTE | 2019-12-15 15:03 | EKG ---
Test Reason : Blood Pressure : / mmHG Vent. Rate : 088 BPM Atrial Rate : 214 BPM P-R Int : 000 ms QRS Dur : 086 ms QT Int : 386 ms P-R-T Axes : 000 033 180 degrees QTc Int : 467 ms ATRIAL FIBRILLATION T WAVE ABNORMALITY, CONSIDER LATERAL ISCHEMIA PROLONGED QT ABNORMAL ECG WHEN COMPARED WITH ECG OF 13-DEC-2019 09:15, INVERTED T WAVES HAVE REPLACED NONSPECIFIC T WAVE ABNORMALITY IN LATERAL LEADS Confirmed by MD Juan, Daquan ([id number]) on 12/15/2019 3:02:41 PM Referred By: Fadia MUÑIZ Confirmed By:Daquan Martinez MD
--- NOTE | 2019-12-15 15:07 | PN ---
Progress Note (short form) - Note Progress Note: drowsy says yes and no Vital Signs - 24 hr 12/14/19 12/14/19 12/14/19 18:00 21:00 22:00 Temperature 98.7 F 98.2 F Pulse Rate 114 H 104 H Respiratory 18 16 16 Rate Blood Pressure 117/77 109/65 O2 Sat by Pulse 95 97 97 Oximetry (%) 12/15/19 12/15/19 12/15/19 02:00 06:00 09:00 Temperature 98.4 F 98 F Pulse Rate 89 91 H Respiratory 18 18 Rate Blood Pressure 105/58 L 125/66 O2 Sat by Pulse 91 L 96 97 Oximetry (%) 12/15/19 12/15/19 10:00 14:00 Temperature 97.8 F 99.4 F Pulse Rate 97 H 109 H Respiratory 18 18 Rate Blood Pressure 115/79 131/80 O2 Sat by Pulse 97 Oximetry (%) Current Medications Generic Name Dose Route Start Last Admin Trade Name Freq PRN Reason Stop Dose Admin Acetaminophen 650 mg 12/11/19 03:15 12/14/19 09:06 Tylenol - PO 650 mg Q4H PRN Administration PAIN LEVEL 1-5 Apixaban 2.5 mg 12/11/19 10:00 12/15/19 10:13 Eliquis - PO Not Given BID IMELDA Aspirin 81 mg 12/13/19 14:00 12/15/19 10:09 Ecotrin - PO 81 mg DAILY IMELDA Administration Atorvastatin Calcium 80 mg 12/15/19 22:00 Lipitor - PO HS [facility] Famotidine 20 mg 12/11/19 10:00 12/15/19 10:09 Pepcid - PO 20 mg DAILY IMELDA Administration Metoprolol Succinate 100 mg 12/14/19 10:00 12/15/19 10:09 Toprol Xl - PO 100 mg DAILY IMELDA Administration Laboratory Results - last 24 hr 12/15/19 12/15/19 06:27 06:27 WBC 6.5 RBC 3.21 L Hgb 10.0 L Hct 30.9 L MCV 96.3 H MCH 31.1 MCHC 32.3 RDW 14.9 Plt Count 153 MPV 7.5 Sodium 144 Potassium 4.2 Chloride 114 H Carbon Dioxide 24 Anion Gap 6 L BUN 31.3 H Creatinine 1.5 H Est GFR (CKD-EPI)AfAm 47.83 Est GFR (CKD-EPI)NonAf 41.27 Random Glucose 104 Calcium 8.6 Total Bilirubin 0.6 AST 46 H ALT 20 Alkaline Phosphatase 113 Total Protein 6.4 Albumin 2.8 L Vitamin B12 427 S1S2 irregular Lungs clear Abd- soft, NT No edema ASSESSMENT/PLAN: Chay is an 89 year old with PMH afib on eliquis presenting to the ED after an unwitnessed fall at rehab center, found to have NSTEMI confused, drowsy #NSTEMI - on ASA, Eliquis -- ordered cardiac enzymes today - ECHO ordered-- noted-- normal LV EF - Cardiology consulted-- appreciated # 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 -- on Eliquis, ASA and Lipitor -- AFib rate is controlled -- will need swallow eval -- PT eval -- spoke with son #Afib with RVR - rate is controlled - Goal rate <110 -- on Eliquis # Left upper extremity pain - Patient reporting pain in shoulder and elbow with decreased strength and ROM - shoulder imaging -- osteoarthritis -- check ct shoulder-- results pending # Acute Anemia - Baseline Hb 11.8, 9.8 on admission - Likely due to epistaxis 1 week ago - Monitor H/H DVT prophylaxis: Eliquis Problem List - Problems (1) Elevated troponin I level Code(s): R79.89 - OTHER SPECIFIED ABNORMAL FINDINGS OF BLOOD CHEMISTRY (2) Multiple falls Code(s): R29.6 - REPEATED FALLS (3) Epistaxis Code(s): R04.0 - EPISTAXIS
--- NOTE | 2019-12-15 19:50 | PN ---
Progress Note, Physician Chief Complaint: AMS History of Present Illness: pT P/W ams, MRI brain wo indicative of multiple shower embli of infarct at multiple b/l hemisphere . Pt comfortable , still lethargic . - Current Medication List Current Medications: Active Medications Acetaminophen (Tylenol -) 650 mg PO Q4H PRN PRN Reason: PAIN LEVEL 1-5 Last Admin: 12/14/19 09:06 Dose: 650 mg Documented by: Apixaban (Eliquis -) 2.5 mg PO BID [facility] Last Admin: 12/15/19 10:13 Dose: Not Given Documented by: Aspirin (Ecotrin -) 81 mg PO DAILY [facility] Last Admin: 12/15/19 10:09 Dose: 81 mg Documented by: Atorvastatin Calcium (Lipitor -) 80 mg PO [facility] Famotidine (Pepcid -) 20 mg PO DAILY [facility] Last Admin: 12/15/19 10:09 Dose: 20 mg Documented by: Metoprolol Succinate (Toprol Xl -) 100 mg PO DAILY [facility] Last Admin: 12/15/19 10:09 Dose: 100 mg Documented by: - Objective Vital Signs: Vital Signs Temperature 98.5 F 12/15/19 18:00 Pulse Rate 99 H 12/15/19 18:00 Respiratory Rate 18 12/15/19 18:00 Blood Pressure 128/67 12/15/19 18:00 O2 Sat by Pulse Oximetry (%) 97 12/15/19 18:00 Constitutional: Yes: Well Nourished Eyes: Yes: WNL HENT: Yes: WNL Neck: Yes: WNL Cardiovascular: Yes: WNL Respiratory: Yes: WNL Edema: No Neurological: Yes: Babinski positive, Cran Nerves II-XII Intact, Weakness Labs: CBC, BMP 12/15/19 06:27 12/15/19 06:27 INR, PTT INR 1.21 (0.83-1.09) H 12/10/19 21:35 - ....Imaging MRI: Report Reviewed, Image Reviewed (Multiple dhower of embolic infarct ,large cerebellar) Problem List - Problems (1) Encephalopathy Code(s): G93.40 - ENCEPHALOPATHY, UNSPECIFIED (2) Multiple falls Problems reviewed: Yes Code(s): R29.6 - REPEATED FALLS (3) Rapid atrial fibrillation Code(s): I48.91 - UNSPECIFIED ATRIAL FIBRILLATION Assessment/Plan 89yoM with history of atrial fibrillation on Eliquis, HTN, HLD, anemia, and remote history of colon cancer who presents from [facility] after being found on the floor. Pt lethargic, non verbal , open his eyes w force sometimes , withdraw to pain , L side spastic, L upgoing toe; no clinical seizure ; CTH wo no acute [employer] pathology on 12/09; afib on AC and baby asp , trop high under investigation;HB < 10 ; Cr mildly elevated , ? CKD . Repeat CTH indicative of acute infarct so we obtained MRI brain which indicative of multiple shower embli of infarct at multiple b/l hemisphere I suggest holding off Eliquis for now- for possibility of hemorrhagic transformation of large infarct in the cerebellar area , will obtain CT head repeat in 3 days and reevaluate for restart AC. C/w baby asp statin Health maintenance per primary team. Amadou Escobedo MD [phone]
[2019-12-15] MEDS: ATORVASTATIN CA 80 MG TABLET (FP) PO SCH (21:46)
[2019-12-16 06:50] LABS: BASO % 1.2 % (0-2.0); EOS % 2.4 % (0-4.5); HEMOGLOBIN 9.9 GM/dL (11.7-16.9); LYMPH % 8.6 % (8-40); MCH 31.7 pg (25.7-33.7); MEAN PLT VOLUME 7.9 fl (7.5-11.1); MONO % 8.2 % (3.8-10.2); NEUT % 79.6 % (42.8-82.8); PLATELET COUNT 143 K/MM3 (134-434); RBC 3.12 M/mm3 (4.00-5.60); RDW 14.7 % (11.9-15.9); WHITE BLOOD COUNT 6.9 K/mm3 (4.0-10.0)
--- NOTE | 2019-12-16 09:05 | PN ---
Progress Note, Physician History of Present Illness: 89yoM with history of atrial fibrillation on Eliquis, HTN, HLD, anemia, and remote history of colon cancer who presents from [facility] after being found on the floor. Patient is a poor historian but he states he has been having palpitations recently without chest pain or shortness of breath. 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 He states he fell out of bed while trying to eat a meal but does not know how or why. He cannot say if he hit his head or lost consciousness. ED work up notable for hgb 9.8 from 11.8 a week prior, creatinine 1.6, troponin 1.24. EKG showing atrial fibrillation without acute ST or T wave changes. CT head and C-spine showed no acute findings. He received metoprolol tartrate 50mg PO. Admission requested for ACS work up. At time of evaluation patient denies chest pain. - Current Medication List Current Medications: Active Medications Acetaminophen (Tylenol -) 650 mg PO Q4H PRN PRN Reason: PAIN LEVEL 1-5 Last Admin: 12/14/19 09:06 Dose: 650 mg Documented by: Apixaban (Eliquis -) 2.5 mg PO BID [facility] Last Admin: 12/15/19 21:42 Dose: Not Given Documented by: Aspirin (Ecotrin -) 81 mg PO DAILY [facility] Last Admin: 12/15/19 10:09 Dose: 81 mg Documented by: Atorvastatin Calcium (Lipitor -) 80 mg PO HS [facility] Last Admin: 12/15/19 21:46 Dose: 80 mg Documented by: Famotidine (Pepcid -) 20 mg PO DAILY [facility] Last Admin: 12/15/19 10:09 Dose: 20 mg Documented by: Metoprolol Succinate (Toprol Xl -) 100 mg PO DAILY [facility] Last Admin: 12/15/19 10:09 Dose: 100 mg Documented by: - Objective Vital Signs: Vital Signs Temperature 97.8 F 12/16/19 06:00 Pulse Rate 102 H 12/16/19 06:00 Respiratory Rate 18 12/16/19 06:00 Blood Pressure 131/71 12/16/19 06:00 O2 Sat by Pulse Oximetry (%) 94 L 12/16/19 06:00 Eyes: Yes: WNL, Conjunctiva Clear, EOM Intact HENT: Yes: WNL, Atraumatic, Normocephalic Neck: Yes: WNL, Supple, Trachea Midline Cardiovascular: Yes: WNL, Regular Rate and Rhythm Respiratory: Yes: WNL, Regular, CTA Bilaterally Gastrointestinal: Yes: WNL, Normal Bowel Sounds Genitourinary: Yes: WNL Musculoskeletal: Yes: WNL Extremities: Yes: WNL Edema: No Integumentary: Yes: WNL Neurological: Yes: Lethargy Labs: CBC, BMP 12/16/19 06:10 INR, PTT INR 1.21 (0.83-1.09) H 12/10/19 21:35 Problem List - Problems (1) Elevated troponin I level Code(s): R79.89 - OTHER SPECIFIED ABNORMAL FINDINGS OF BLOOD CHEMISTRY (2) Multiple falls Code(s): R29.6 - REPEATED FALLS (3) Epistaxis Code(s): R04.0 - EPISTAXIS Assessment/Plan 89yoM with history of atrial fibrillation on metoprolol and Eliquis, HTN, HLD, anemia, and remote history of colon cancer, who presents from [facility] after being found on the floor. CVA MRI brain which indicative of multiple shower emboli of infarct at multiple b/l hemisphere Positive TNIs: most likely due to CVA. c. duplex no significant obstruction COVID not detected. Rec: ECHO: normal LVEF; severe LAE; no wall motion abnormalities mentioned; moderate pulmonary HTN; mild aortic root dilatation. orthostatic vital signs Maintain hydration. F/u BUN/Cr, electrolytes, daily weight, Is and Os. continue present rx with metoprolol ER and ASA Eliquis on hold as per neurology to prevent hemorrhagic conversion of the CVA
[2019-12-16 09:13] LABS: ALBUMIN 2.6 g/dl (3.4-5.0); BILIRUBIN,TOTAL 0.4 mg/dL (0.2-1); BLOOD UREA NITROGEN 35.2 mg/dL (7-18); CALCIUM 8.3 mg/dL (8.5-10.1); CREATININE 1.7 mg/dL (0.55-1.3); POTASSIUM 4.3 mmol/L (3.5-5.1); TOT PROT 6.1 g/dl (6.4-8.2)
[2019-12-16] MEDS: FAMOTIDINE 20 MG TABLET PO SCH (09:28)
[2019-12-16] MEDS: ASPIRIN COATED 81 MG TABLET.EC PO SCH (09:29)
[2019-12-16] MEDS: APIXABAN 2.5 MG TABLET PO SCH (11:56)
--- NOTE | 2019-12-16 12:49 | CONSULT ---
Admitting History and Physical - Past Medical History Cardiovascular: Yes: AFIB, HTN, Hyperlipdemia - Smoking History Smoking history: Never smoked Have you smoked in the past 12 months: No History - Admission Reason For Visit: EPISTAXSIS,RECURRENT FALLS - Hearing Hearing: Normal Hearing Aide: No Speech Evaluation - Communication Primary Language: UPPER SORBIAN Communication: Yes: Within Normal Limits, Simple Responses Oral Expression Ability: Yes: Moderate Impairment - Speech Production Apraxia: No - Speech Characteristics Voice Loudness: Normal Voice Pitch: Yes: Normal Speech Pattern: Normal Nasal Resonance: Normal Articulation: Yes: Precise Dysfluency: Yes: Tonic Rate of Speech: Intact Voice, Other Observations: Yes: Mouth Breathing, Progressively Weak Voice Voice Comment: Vocal quality is functional for the environment with speech parameters WNL. - Language/Auditory Comprehension Follows: Yes: 1 Stage Simple Commands (WFL), 2 Stage Simple Commands (WFL) Observation: Able to respond to yes/no queries: Yes, Yes/No Confusion: No, Comprehends Conversational Speech: Yes, Benefits from Slow Speech: Yes, Benefits from Repetiton: No, Benefits from Increased Volume of Speech: Yes - Language/Verbal Expression Able to Respond to Simple Queries: Yes: WNL Able to Communicate Wants and Needs: Yes: WNL Aware of Errors: Yes Attempts to Correct Errors: Yes Use of Gestures: Yes Written Expression: not examined Oral Expression: limited speech sample size. Reading Comprehension: not examined Calculations: not examined Attention: Yes: Intact - Memory/Perception senior care Memory: Yes: Moderately Impaired (unable to determine; pt was lethargic at bedside) Short Term Memory: Yes: Moderately Impaired (unable to determine; pt was lethargic at bedside) - Swallow Evaluation/Bedside Assessment Current Nutritional Intake: Regular, Soft (NA controlled), Thin Liquids Oral Secretions: Yes: WFL Tracheostomy Present: No Patient on Ventilator: No Dentition: Yes: Adequate Facial Symmetry at Rest: Symmetrical Facial Symmetry on Retraction: Symmetrical Facial Movement: Controlled Sensation: Normal Jaw Position: Closed at Rest Against Resistance Opening: Normal Against Resistance Closing: Normal Lips, Comment: unable to formally evaluate secondary to mental status; appears WNL Lingual Speed of Movement: Normal Lingual Movement Strgth Against Opposition: Normal Lingual Movement Characteristics: Normal Lingual Comment: appears WFL Gag Reflex: Strong Bite Reflex: Present Velopharyngeal Movement: Normal Laryngeal Elevation: WFL Laryngeal Movement: Able to Palpate Needs Assistance: Yes Rate of Intake: WFL Bolus Size: WFL Chewing: WFL Oral Prep Time: WFL A-P Transit: WFL Timing of Swallow: Delayed Coughing/Throat Clear: No Change in Voice: No Other Findings/Remarks: Pt seen at bedside by SPECIAL POLICE OFFICER for swallow evaluation to r/o dysphagia. Pt is verbal A&Ox2, cooperative somewhat reliable yes / no response and able to follow some directives with minimal difficulty. CC: found on the floor at [facility]. PMHX includes: HTN, HLD, colon CA anemia and recent LUE pain. Vocal quality is functional for the environment with speech parameters WNL. Volitional airway protection (without bolus) and swallow is WNL. Hypothyroid elevation was present/strong to palpation of the anterior neck. Current diet: soft Na controlled diet with thin liquids. Pt given PO trials of pureed soft solids, regular cut to bite sized pieces with minimal assistance revealed good acceptance, adequate increased mastication, bolus formation and A P transport with a mild pharyngeal swallow (1-3 second average). No change in voicing or respiration after the swallow. Limited study as patient only a few bites. Pt given PO trials of ice chips via spoon, thin liquids via cup and straw were unremarkable for dysphagia and /or aspiration at this time. Recommendations - Speech Evaluation, Impression/Plan Impression: 89 yo male presents as able to tolerate puree and mechanical soft moisten solids and thin liquids at this time. No evidence of dysphagia or aspiration on any consistency given during this evaluation. SPECIAL POLICE OFFICER could not determine speech and language ability secondary to AMS (lethargy). Half-Way Goals: Tolerate the least restrictive solid and liquid consistencies without s/s of penetration / aspiration. Short Term Goals: Tolerate purees and soft solids and thin liquid consistencies without s/s of penetration / aspiration. - Dysphagia Impressions/Plan Swallowing Skills: Impaired (mild pharyngeal swallow delay with soft solids without aspiration-like behaviors) Dysphagia Impressions: Mild Impairment (pharyngeal phase with soft solids.), Risk of Aspiration *Silent aspiration: cannot be R/O at bedside Dysphagia Treatment Plan: Safe Rate, Elevate HOB during feed, Other (slow intake pace, encourage thorough chewing.) Dysphagia Evaluation Summary: Continue po intake of pureed and soft solids with thin liquids as tolerated. Observe standard aspiration precautions. Provide oral care before and after meals. Medication can be given whole with water. Results given verbally to charge out clerk and PCP via chart. SPECIAL POLICE OFFICER to follow up as needed. - Recommendations Diet Consistency: 1 - 2 Soft Items Medication Administration: Whole with water
--- NOTE | 2019-12-16 13:41 | PN ---
Progress Note, Physician History of Present Illness: Pt seen/ examined chart is reviewed awake comfortable denies pain Drowsy but arousable Eating okay - Current Medication List Current Medications: Active Medications Acetaminophen (Tylenol -) 650 mg PO Q4H PRN PRN Reason: PAIN LEVEL 1-5 Last Admin: 12/14/19 09:06 Dose: 650 mg Documented by: Apixaban (Eliquis -) 2.5 mg PO BID [facility] Last Admin: 12/16/19 11:56 Dose: Not Given Documented by: Aspirin (Ecotrin -) 81 mg PO DAILY [facility] Last Admin: 12/16/19 09:29 Dose: 81 mg Documented by: Atorvastatin Calcium (Lipitor -) 80 mg PO HS [facility] Last Admin: 12/15/19 21:46 Dose: 80 mg Documented by: Famotidine (Pepcid -) 20 mg PO DAILY [facility] Last Admin: 12/16/19 09:28 Dose: 20 mg Documented by: Metoprolol Succinate (Toprol Xl -) 100 mg PO DAILY [facility] Last Admin: 12/16/19 09:29 Dose: 100 mg Documented by: - Objective Vital Signs: Vital Signs Temperature 98.7 F 12/16/19 09:26 Pulse Rate 95 H 12/16/19 09:26 Respiratory Rate 18 12/16/19 09:26 Blood Pressure 133/79 12/16/19 09:26 O2 Sat by Pulse Oximetry (%) 97 12/16/19 09:26 Constitutional: Yes: No Distress, Calm Neck: Yes: Supple Cardiovascular: Yes: Regular Rate and Rhythm Respiratory: Yes: Diminished Gastrointestinal: Yes: Soft Edema: No Labs: CBC, BMP 12/16/19 06:10 12/16/19 06:10 INR, PTT INR 1.21 (0.83-1.09) H 12/10/19 21:35 - ....Imaging MRI: Report Reviewed Problem List - Problems (1) Elevated troponin I level Code(s): R79.89 - OTHER SPECIFIED ABNORMAL FINDINGS OF BLOOD CHEMISTRY (2) Multiple falls Code(s): R29.6 - REPEATED FALLS (3) Rapid atrial fibrillation Code(s): I48.91 - UNSPECIFIED ATRIAL FIBRILLATION Assessment/Plan clinically stable remains drowsy Tolerating diet MRI reviewed nephrology follow-up also noted and appreciated I agree with holding Eliquis--- For few days Repeat CT scan 3 days later Continue aspirin Physical therapy Discussed with nursing staff also Overall condition remains guarded but stable I discussed in detail with patient's son also----Discussed clinical condition as well as MRI findings also we will continue to follow
[2019-12-16] MEDS: ATORVASTATIN CA 80 MG TABLET (FP) PO SCH (21:41)
[2019-12-17] MEDS: ASPIRIN COATED 81 MG TABLET.EC PO SCH (10:36)
[2019-12-17] MEDS: FAMOTIDINE 20 MG TABLET PO SCH (10:37)
--- NOTE | 2019-12-17 10:47 | PN ---
Progress Note, FACILITY MANAGER HISTOLOGY - Note Progress Note: Pt with multiple acute infarcts, on reg diet, thin liquids. Selected Entries 12/16/19 12/16/19 12/16/19 09:45 13:32 22:35 Breakfast 100% Diet Tolerated Well Well Lunch 75% 75% Supper 100% Temperature Pulse Rate Blood Pressure 12/17/19 12/17/19 12/17/19 01:53 06:00 10:00 Breakfast 100% Diet Tolerated Well Lunch Supper Temperature 97.7 F 98.4 F 98.3 F Pulse Rate 115 H 117 H 129 H Blood Pressure 118/91 126/82 104/63 Laboratory Tests 12/16/19 12/16/19 06:10 14:05 WBC 6.9 COVID-19 ([facility]) Not detected Upon admission, pt was verbal, confused, rambled. Increase in lethargy/eye closure. Not truly lethargic for me but pooer ability to engage, keeping eyes closed but responsive, follows commands,arousable and accepting po. with good tolerance reported. No coughing or overt difficulty Pt maintains eye closure, but verbalizations were elicited including "Nicolás" "Parisella" "Sprain brook" "89" Speech is precise, intelligible. Hopefully pt will increase bilty to attend to environment and open eyes more with recovery from multi-infarct.
--- NOTE | 2019-12-17 13:31 | PN ---
Progress Note (short form) - Note Progress Note: drowsy says yes and no taking po Vital Signs - 24 hr 12/16/19 12/16/19 12/16/19 18:00 21:00 22:00 Temperature 97.0 F L 98.5 F Pulse Rate 96 H 93 H Respiratory 18 18 Rate Blood Pressure 117/75 108/73 O2 Sat by Pulse 98 96 96 Oximetry (%) 12/17/19 12/17/19 12/17/19 01:53 06:00 09:00 Temperature 97.7 F 98.4 F Pulse Rate 115 H 117 H Respiratory 18 18 18 Rate Blood Pressure 118/91 126/82 O2 Sat by Pulse 93 L 96 96 Oximetry (%) 12/17/19 10:00 Temperature 98.3 F Pulse Rate 129 H Respiratory 18 Rate Blood Pressure 104/63 O2 Sat by Pulse 96 Oximetry (%) Current Medications Generic Name Dose Route Start Last Admin Trade Name Freq PRN Reason Stop Dose Admin Acetaminophen 650 mg 12/11/19 03:15 12/14/19 09:06 Tylenol - PO 650 mg Q4H PRN Administration PAIN LEVEL 1-5 Aspirin 81 mg 12/13/19 14:00 12/17/19 10:36 Ecotrin - PO 81 mg DAILY IMELDA Administration Atorvastatin Calcium 80 mg 12/15/19 22:00 12/16/19 21:41 Lipitor - PO 80 mg HS IMEDLA Administration Famotidine 20 mg 12/11/19 10:00 12/17/19 10:37 Pepcid - PO 20 mg DAILY IMELDA Administration Metoprolol Succinate 100 mg 12/14/19 10:00 12/17/19 10:37 Toprol Xl - PO 100 mg DAILY IMELDA Administration Laboratory Results - last 24 hr 12/16/19 14:05 COVID-19 ([facility]) Not detected S1S2 irregular Lungs clear Abd- soft, NT No edema ASSESSMENT/PLAN: Chay is an 89 year old with PMH afib on eliquis presenting to the ED after an unwitnessed fall at rehab center, found to have NSTEMI confused, drowsy #NSTEMI - medical management for now # 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 -- on ASA -- Eliquis on hold -- will repeat CT head tomorrow -- AFib rate is controlled -- swallow eval -- PT eval -- spoke with son #Eliel with RVR - rate is controlled - Goal rate <110 -- off Eliquis for now # Left upper extremity pain - Patient reporting pain in shoulder and elbow with decreased strength and ROM - shoulder imaging -- osteoarthritis -- check ct shoulder-- results noted # Acute Anemia - Baseline Hb 11.8, 9.8 on admission - Likely due to epistaxis 1 week ago - Monitor H/H DVT prophylaxis:holding Eliquis Problem List - Problems (1) Elevated troponin I level Code(s): R79.89 - OTHER SPECIFIED ABNORMAL FINDINGS OF BLOOD CHEMISTRY (2) Multiple falls Code(s): R29.6 - REPEATED FALLS (3) Epistaxis Code(s): R04.0 - EPISTAXIS
[2019-12-17] MEDS: ATORVASTATIN CA 80 MG TABLET (FP) PO SCH (22:19)
--- NOTE | 2019-12-18 07:26 | PN ---
Progress Note, Physician Chief Complaint: Pt opens eyes only after repeated requests; silent. History of Present Illness: Mr. Fuentes is an 89 yr old man with PM history of atrial fibrillation on Eliquis, HTN, HLD, anemia, and remote history of colon cancer, who presents from [facility] after being found on the floor. Patient is a poor historian but he states he has been having palpitations recently without chest pain or shortness of breath. 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 He states he fell out of bed while trying to eat a meal but does not know how or why. He cannot say if he hit his head or lost consciousness. ED work up notable for hgb 9.8 from 11.8 a week prior, creatinine 1.6, troponin 1.24. EKG showing atrial fibrillation without acute ST or T wave changes. CT head and C-spine showed no acute findings. He received metoprolol tartrate 50mg PO. Admission requested for ACS work up. At time of evaluation patient denies chest pain. - Current Medication List Current Medications: Active Medications Acetaminophen (Tylenol -) 650 mg PO Q4H PRN PRN Reason: PAIN LEVEL 1-5 Last Admin: 12/14/19 09:06 Dose: 650 mg Documented by: Aspirin (Ecotrin -) 81 mg PO DAILY [facility] Last Admin: 12/17/19 10:36 Dose: 81 mg Documented by: Atorvastatin Calcium (Lipitor -) 80 mg PO HS [facility] Last Admin: 12/17/19 22:19 Dose: 80 mg Documented by: Famotidine (Pepcid -) 20 mg PO DAILY [facility] Last Admin: 12/17/19 10:37 Dose: 20 mg Documented by: Metoprolol Succinate (Toprol Xl -) 100 mg PO DAILY [facility] Last Admin: 12/17/19 10:37 Dose: 100 mg Documented by: - Objective Vital Signs: Vital Signs Temperature 97.5 F L 12/18/19 06:00 Pulse Rate 113 H 12/18/19 06:00 Respiratory Rate 18 12/18/19 06:00 Blood Pressure 129/72 12/18/19 06:00 O2 Sat by Pulse Oximetry (%) 97 12/18/19 06:00 Labs: CBC, BMP 12/16/19 06:10 12/16/19 06:10 INR, PTT INR 1.21 (0.83-1.09) H 12/10/19 21:35 Assessment/Plan 89yoM with history of atrial fibrillation on metoprolol and Eliquis, HTN, HLD, anemia, and remote history of colon cancer, who presents from [facility] after being found on the floor. confusion r/o syncope Positive TNIs: cannot r/o NSTEMI, though no regional wall motion abnormalities on ECHO, and multiple contributers to demand ischemia, including AF, anemia. c. duplex no significant obstruction Rec: COVID not detected. ECHO: normal LVEF; severe LAE; no wall motion abnormalities mentioned; moderate pulmonary HTN; mild aortic root dilatation. orthostatic vital signs Maintain hydration. F/u BUN/Cr, electrolytes, daily weight, Is and Os. AF: On metoprolol ER for HR control DOAC held per neurology; f/u repeat CT head.
[2019-12-18] MEDS: ACETAMINOPHEN 325 MG TABLET (FP) PO PRN (09:05)
[2019-12-18] MEDS: ASPIRIN COATED 81 MG TABLET.EC PO SCH (09:06)
[2019-12-18] MEDS: FAMOTIDINE 20 MG TABLET PO SCH (09:06)
--- NOTE | 2019-12-18 10:28 | PN ---
Progress Note, Physician History of Present Illness: 89yoM with history of atrial fibrillation on Eliquis, HTN, HLD, anemia, and remote history of colon cancer who presents from [facility] after being found on the floor. Patient is a poor historian but he states he has been having palpitations recently without chest pain or shortness of breath. 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 He states he fell out of bed while trying to eat a meal but does not know how or why. He cannot say if he hit his head or lost consciousness. ED work up notable for hgb 9.8 from 11.8 a week prior, creatinine 1.6, troponin 1.24. EKG showing atrial fibrillation without acute ST or T wave changes. CT head and C-spine showed no acute findings. He received metoprolol tartrate 50mg PO. Admission requested for ACS work up. At time of evaluation patient denies chest pain. - Current Medication List Current Medications: Active Medications Acetaminophen (Tylenol -) 650 mg PO Q4H PRN PRN Reason: PAIN LEVEL 1-5 Last Admin: 12/18/19 09:05 Dose: 650 mg Documented by: Aspirin (Ecotrin -) 81 mg PO DAILY [facility] Last Admin: 12/18/19 09:06 Dose: 81 mg Documented by: Atorvastatin Calcium (Lipitor -) 80 mg PO HS [facility] Last Admin: 12/17/19 22:19 Dose: 80 mg Documented by: Famotidine (Pepcid -) 20 mg PO DAILY [facility] Last Admin: 12/18/19 09:06 Dose: 20 mg Documented by: Metoprolol Succinate (Toprol Xl -) 100 mg PO DAILY [facility] Last Admin: 12/18/19 09:06 Dose: 100 mg Documented by: - Objective Vital Signs: Vital Signs Temperature 98.5 F 12/18/19 09:09 Pulse Rate 102 H 12/18/19 09:09 Respiratory Rate 18 12/18/19 09:09 Blood Pressure 120/92 12/18/19 09:09 O2 Sat by Pulse Oximetry (%) 98 12/18/19 09:09 Eyes: Yes: WNL, Conjunctiva Clear, EOM Intact HENT: Yes: WNL, Atraumatic, Normocephalic Neck: Yes: WNL, Supple, Trachea Midline Cardiovascular: Yes: WNL, Regular Rate and Rhythm Respiratory: Yes: WNL, Regular, CTA Bilaterally Gastrointestinal: Yes: WNL, Normal Bowel Sounds Genitourinary: Yes: WNL Musculoskeletal: Yes: WNL Extremities: Yes: WNL Edema: No Integumentary: Yes: WNL Labs: CBC, BMP 12/16/19 06:10 12/16/19 06:10 INR, PTT INR 1.21 (0.83-1.09) H 12/10/19 21:35 Problem List - Problems (1) Elevated troponin I level Code(s): R79.89 - OTHER SPECIFIED ABNORMAL FINDINGS OF BLOOD CHEMISTRY (2) Multiple falls Code(s): R29.6 - REPEATED FALLS (3) Epistaxis Code(s): R04.0 - EPISTAXIS Assessment/Plan 89yoM with history of atrial fibrillation on metoprolol and Eliquis, HTN, HLD, anemia, and remote history of colon cancer, who presents from [facility] after being found on the floor. confusion r/o syncope Positive TNIs: cannot r/o NSTEMI, though no regional wall motion abnormalities on ECHO, and multiple contributers to demand ischemia, including AF, anemia. c. duplex no significant obstruction Rec: COVID not detected. ECHO: normal LVEF; severe LAE; no wall motion abnormalities mentioned; moderate pulmonary HTN; mild aortic root dilatation. orthostatic vital signs Maintain hydration. F/u BUN/Cr, electrolytes, daily weight, Is and Os. AF: On metoprolol ER for HR control DOAC held per neurology; f/u repeat CT head.
--- NOTE | 2019-12-18 12:18 | PN ---
Progress Note, ANTIQUE CLOCK REPAIRER - Note Progress Note: Selected Entries 12/17/19 12/17/19 12/17/19 10:00 14:00 15:00 Breakfast 100% 100% Diet Tolerated Well Lunch 75% 75% Temperature Pulse Rate Pulse Rate [ Left side Sitting] Pulse Rate [ Left side Standing] Pulse Rate [ Left side Supine] 12/18/19 12/18/19 12/18/19 02:00 06:00 09:09 Breakfast Diet Tolerated Lunch Temperature 97.9 F 97.5 F L 98.5 F Pulse Rate 113 H 113 H 102 H Pulse Rate [ Left side Sitting] Pulse Rate [ Left side Standing] Pulse Rate [ Left side Supine] 12/18/19 11:14 Breakfast Diet Tolerated Lunch Temperature Pulse Rate Pulse Rate [ 74 Left side Sitting] Pulse Rate [ 120 H Left side Standing] Pulse Rate [ 116 H Left side Supine] CT head noted. Awake, eyes open, verbal, interactive! Reported to be intermittent but improving. Tolerating diet.
--- NOTE | 2019-12-18 16:51 | PN ---
Progress Note (short form) - Note Progress Note: drowsy says yes and no taking po without difficulty per RN Vital Signs - 24 hr 12/17/19 12/17/19 12/17/19 16:52 21:00 22:00 Temperature 98.9 F 98.6 F Pulse Rate 114 H 110 H Pulse Rate [ Left side Sitting] Pulse Rate [ Left side Standing] Pulse Rate [ Left side Supine] Respiratory 18 17 17 Rate Blood Pressure 121/60 117/72 Blood Pressure [Left side Sitting] Blood Pressure [Left side Standing] Blood Pressure [Left side Supine] O2 Sat by Pulse 97 97 97 Oximetry (%) 12/18/19 12/18/19 12/18/19 02:00 06:00 09:00 Temperature 97.9 F 97.5 F L Pulse Rate 113 H 113 H Pulse Rate [ Left side Sitting] Pulse Rate [ Left side Standing] Pulse Rate [ Left side Supine] Respiratory 18 18 Rate Blood Pressure 105/60 129/72 Blood Pressure [Left side Sitting] Blood Pressure [Left side Standing] Blood Pressure [Left side Supine] O2 Sat by Pulse 97 97 98 Oximetry (%) 12/18/19 12/18/19 12/18/19 09:09 11:14 14:10 Temperature 98.5 F 97.3 F L Pulse Rate 102 H 92 H Pulse Rate [ 74 Left side Sitting] Pulse Rate [ 120 H Left side Standing] Pulse Rate [ 116 H Left side Supine] Respiratory 18 18 Rate Blood Pressure 120/92 103/83 Blood Pressure 97/64 [Left side Sitting] Blood Pressure 117/84 [Left side Standing] Blood Pressure 98/51 L [Left side Supine] O2 Sat by Pulse 98 Oximetry (%) Current Medications Generic Name Dose Route Start Last Admin Trade Name Freq PRN Reason Stop Dose Admin Acetaminophen 650 mg 12/11/19 03:15 12/18/19 09:05 Tylenol - PO 650 mg Q4H PRN Administration PAIN LEVEL 1-5 Apixaban 2.5 mg 12/18/19 22:00 Eliquis - PO BID IMELDA Aspirin 81 mg 12/13/19 14:00 12/18/19 09:06 Ecotrin - PO 81 mg DAILY [facility] Administration Atorvastatin Calcium 80 mg 12/15/19 22:00 12/17/19 22:19 Lipitor - PO 80 mg HS IMELDA Administration Famotidine 20 mg 12/11/19 10:00 12/18/19 09:06 Pepcid - PO 20 mg DAILY [facility] Administration Metoprolol Succinate 100 mg 12/14/19 10:00 12/18/19 09:06 Toprol Xl - PO 100 mg DAILY IM[facility] Administration S1S2 irregular Lungs clear Abd- soft, NT No edema ASSESSMENT/PLAN: Chay is an 89 year old with PMH afib on eliquis presenting to the ED after an unwitnessed fall at rehab center, found to have NSTEMI confused, drowsy #NSTEMI - medical management for now on asa restarted eliquis today # 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 -- on ASA -- Eliquis to be restarted today-- I spoke with neurologist and told him of the CT head results -- AFib rate is controlled -- swallow eval -- PT eval -- spoke with son #Afib with RVR - rate is controlled - Goal rate <110 -- on Eliquis # Left upper extremity pain - Patient reporting pain in shoulder and elbow with decreased strength and ROM - shoulder imaging -- osteoarthritis -- check ct shoulder-- results noted # Acute Anemia - Baseline Hb 11.8, 9.8 on admission - Likely due to epistaxis 1 week ago - Monitor H/H DVT prophylaxis:holding Eliquis Problem List - Problems (1) Elevated troponin I level Code(s): R79.89 - OTHER SPECIFIED ABNORMAL FINDINGS OF BLOOD CHEMISTRY (2) Multiple falls Code(s): R29.6 - REPEATED FALLS (3) Epistaxis Code(s): R04.0 - EPISTAXIS
[2019-12-18] MEDS: ATORVASTATIN CA 80 MG TABLET (FP) PO SCH (21:25)
[2019-12-18] MEDS: APIXABAN 2.5 MG TABLET PO SCH (21:25)
[2019-12-19] MEDS: APIXABAN 2.5 MG TABLET PO SCH (09:42)
[2019-12-19] MEDS: ASPIRIN COATED 81 MG TABLET.EC PO SCH (09:42)
[2019-12-19] MEDS: FAMOTIDINE 20 MG TABLET PO SCH (09:42)
--- NOTE | 2019-12-19 09:49 | PN ---
Progress Note, FIRER TUNNEL KILN - Note Progress Note: Selected Entries 12/17/19 12/17/19 12/17/19 10:00 14:00 15:00 Breakfast 100% 100% Diet Tolerated Well Lunch 75% 75% Temperature Pulse Rate Pulse Rate [ Left side Sitting] Pulse Rate [ Left side Standing] Pulse Rate [ Left side Supine] 12/18/19 12/18/19 12/18/19 02:00 06:00 09:09 Breakfast Diet Tolerated Lunch Temperature 97.9 F 97.5 F L 98.5 F Pulse Rate 113 H 113 H 102 H Pulse Rate [ Left side Sitting] Pulse Rate [ Left side Standing] Pulse Rate [ Left side Supine] 12/18/19 11:14 Breakfast Diet Tolerated Lunch Temperature Pulse Rate Pulse Rate [ 74 Left side Sitting] Pulse Rate [ 120 H Left side Standing] Pulse Rate [ 116 H Left side Supine] Selected Entries 12/18/19 12/18/19 12/19/19 14:10 23:00 01:59 Breakfast 100% Diet Tolerated Lunch 75% Supper 50% Temperature 98.1 F Pulse Rate 110 H Blood Pressure 142/82 O2 Sat by Pulse 95 Oximetry (%) 12/19/19 12/19/19 12/19/19 06:00 09:09 09:41 Breakfast 75% Diet Tolerated Well Lunch Supper Temperature 97.9 F 97.8 F Pulse Rate 116 H 85 Blood Pressure 105/61 136/86 O2 Sat by Pulse 95 98 Oximetry (%) Laboratory Tests 12/11/19 12/16/19 12/16/19 09:00 06:10 14:05 WBC 6.9 COVID-19 ([facility]) Not detected Not detected Intermittent LUIS ALFREDO but improving.Eyes closed today, responded "i'm trying!!" when asked to open them. Verbal, confused Tolerating diet.
--- NOTE | 2019-12-19 11:48 | DS ---
Physical Examination Vital Signs: Vital Signs Temperature 97.8 F 12/19/19 09:41 Pulse Rate 85 12/19/19 09:41 Respiratory Rate 20 12/19/19 09:41 Blood Pressure 136/86 12/19/19 09:41 O2 Sat by Pulse Oximetry (%) 98 12/19/19 09:41 Constitutional: Yes: No Distress Cardiovascular: Yes: Pulse Irregular Respiratory: Yes: CTA Bilaterally Gastrointestinal: Yes: Normal Bowel Sounds, Soft. No: Tenderness Edema: No Neurological: Yes: Babinski positive (left), Weakness (left arm and left leg -- 3-4/5 , responds to simple commands) Labs: CBC, BMP 12/16/19 06:10 12/16/19 06:10 Discharge Summary Problems reviewed: Yes Reason For Visit: EPISTAXSIS,RECURRENT FALLS Current Active Problems Elevated troponin I level (Acute) Encephalopathy (Acute) Multiple falls (Acute) Rapid atrial fibrillation (Acute) Hospital Course: HISTORY OF PRESENT ILLNESS: Mr. Fuentes is an 89 year old with PMH of afib on Eliquis, hypertension, hyperlipidemia, colon cancer who presents to the ED after an unwitnessed fall this morning. Currently residing at [facility]. Patient is a poor historian but reports during breakfast he fell, landing on his back. Denied fever, chills, headache, dizziness, vision loss, diaphoresis prior to the episode. He reports new pain in the left shoulder and pain in the left leg, with associated weakness. ER course was notable for: CT head, cervical spine negative for acute pathology; EKG revealed Afib RVR without acute ST wave changes. Acetaminophen and metoprolol administered. 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 Eliquis was on hold to prevent hemorrhagic transformation CT head done 3 days later did not show hemorrhargic transformation of infarcts Eliquis restarted yesterday Pt was also being evaluated by swallow therapist daily -- he is able to tolerate po He responds to simple commands but is not at baseline mentation He will need PT and OT, swallow and speech therapy Left shoulder CT -- degenerative changes, chronic rotator cuff tear Stable for dc to STR Condition: Stable - Instructions Referrals: Tang Cortez MD [Primary Care Provider] - - Home Medications Comprehensive Discharge Medication List: Ambulatory Orders Aa/Hydrolyzed Collagen, Whey [Lps 15-30 Liquid] 30 ml PO BID 12/11/19 Acetaminophen 650 mg PO Q6H PRN 12/11/19 Allopurinol [Zyloprim -] 100 mg PO BID 12/11/19 Ammonium Lactate Lotion [Lac-Hydrin 12% Lotion -] 1 applic TP DAILY 12/11/19 Amoxicillin - [Amoxicillin 500mg Capsule -] 1,000 mg PO BID 12/11/19 Apixaban [Eliquis] 2.5 mg PO BID 12/11/19 Ascorbate Calcium [Vitamin C] 500 mg PO DAILY 12/11/19 Bacillus Coagulans [Bacid with Lactospore] 250 mg PO TID 12/11/19 Cyanocobalamin (Vitamin B-12) [B-12] 1,000 mcg PO DAILY 12/11/19 Famotidine 20 mg PO DAILY 12/11/19 Ferrous Sulfate [Iron] 325 mg PO DAILY 12/11/19 Finasteride 5 mg PO DAILY 12/11/19 Fluticasone/Vilanterol [Breo Ellipta 100-25 Mcg INH] 1 each IH DAILY 12/11/19 Furosemide 20 mg PO DAILY MDD 60 mg 12/11/19 Furosemide 40 mg PO DAILY MDD 60 mg 12/11/19 Lidocaine [Aspercreme] 1 each TP DAILY 12/11/19 Melatonin/Pyridoxine HCl (B6) [Melatonin 5 mg Tablet] 1 each PO HS 12/11/19 Metoprolol Succinate 50 mg PO DAILY 12/11/19 Montelukast Sodium [Singulair] 10 mg PO HS 12/11/19 Polyethylene Glycol 3350 [Miralax (For Daily Use) -] 17 gm PO PRN PRN 12/11/19 Polyvinyl Alcohol [Artificial Tears] 1 drop OD ASDIR 12/11/19 Potassium Chloride 40 meq PO BID 12/11/19 Sodium Chloride Nasal [place] [[place] Nasal [place] -] 1 spray NS PRN PRN 12/11/19 Spironolactone [Aldactone] 25 mg PO DAILY 12/11/19 Tramadol HCl 50 mg PO Q8H PRN 12/11/19
[2019-12-19 14:16] VITALS: BP 107/78; PULSE 91; TEMP 98.2
== END 2019-12-19 16:45 | disposition home or self-care (01) | DRG 280 ==
LOC: JER 17:36 → JERBED 22:51 → J4S 12-11 18:46
PROVIDERS: ADMIT Hospitalist; ATTEND Internal Medicine
DX: I21.4 Non-ST elevation (NSTEMI) myocardial infarction (principal); I63.9 Cerebral infarction, unspecified; G93.40 Encephalopathy, unspecified; R04.0 Epistaxis; E78.5 Hyperlipidemia, unspecified; I48.91 Unspecified atrial fibrillation; I24.8 Other forms of acute ischemic heart disease; I50.9 Heart failure, unspecified; I11.0 Hypertensive heart disease with heart failure
CPT/HCPCS: 36415; 70450-TC; 70551-TC; 71045-TC-FY; 72125-TC; 73030-TC-LT-FY; 73200-TC-RT; 80048; 80053; 80061; 81003; 82550; 82553; 82607; 83036; 83605; 83721; 84439; 84443; 84484; 85025; 85027; 85610; 85730; 86850; 86900; 86901; 90670; 93005; 93010; 93306-TC; 93880-TC; 97116-GP; 97161-GP; 99285-25; J0131; U0003